=== PATIENT | female | born 1945 | race Caucasian/White ===

== ENCOUNTER 2017-04-02 11:01 | Observation (INO) | payer MEDICARE ==
[~2017-04-02] VITALS: Ht 154.9 cm; Wt 59.0 kg
[~2017-04-02 11:01] MED LIST: CHOL50006 PO; FISH500C PO; MULTCAP OR; [UNRECOGNIZED DRUG - OTHER] PO
[2017-04-02] MEDS ORDERED: IOHEXOL 350 MG/ML 10 ML VIAL (for RAD DIAG) IVCONTRAST ONE (11:02)
[2017-04-02 11:04] VITALS: BP 141/93; PULSE 97; RESP 14; TEMP 98.7; O2SAT 97
[2017-04-02 11:51] LABS: AUTOMATED NEUTROPHIL # 4.1 TH/MM3 (1.8-7.7); BASOPHIL % 0.5 % (0.0-2.0); EOSINOPHIL % 0.6 % (0.0-4.0); HEMATOCRIT 33.8 % (35.0-46.0); HEMOGLOBIN 11.3 GM/DL (11.6-15.3); LYMPHOCYTE # 1.2 TH/MM3 (1.0-4.8); MEAN CELL VOLUME 95.8 FL (80.0-100.0); MEAN CORPUSCULAR HEMOGLOBIN 32.1 PG (27.0-34.0); MEAN CORPUSCULAR HGB CONC 33.5 % (32.0-36.0); MEAN PLATELET VOLUME 8.1 FL (7.0-11.0); MONO % 5.1 % (0.0-8.0); MONOCYTE # 0.3 TH/MM3 (0-0.9); NEUT % 72.8 % (16.0-70.0); PLATELET COUNT 263 TH/MM3 (150-450); RED BLOOD COUNT 3.53 MIL/MM3 (4.00-5.30); RED CELL DISTRIBUTION WIDTH 16.6 % (11.6-17.2); WHITE BLOOD COUNT 5.6 TH/MM3 (4.0-11.0)
[2017-04-02 12:01] LABS: PROTHROMBIN TIME - PATIENT 9.9 SEC (9.8-11.6)
--- NOTE | 2017-04-02 12:14 | PD ---
HPI Chief Complaint: Abdominal Pain Time Seen by Provider: 11:14 Travel History International Travel<30 days: No Contact w/Intl Traveler<30days: No Traveled to known affect area: No History of Present Illness HPI 71-year-old female that presents to the ED for evaluation of left upper abdominal pain. Patient has a history of ovarian cancer with chemotherapy. Last chemotherapy was on . Per patient since she's been feeling that she has constipation she's been taking her medications with minimal relief. Per patient she develop left upper abdominal pain as well as in the left chest and she wasn't sure if he was related to the obstipation or not but she got concerned because the pain continued. No urinary issues. Patient denies any nausea or vomiting. Denies any bowel movement for the past 24 hours. She was not trying enema but she was concerned of using it if she didn't know what she was having. She denies any shortness of breath but does state that with deep breaths she has sharp pain in her left upper quadrant as well as her chest. She denies taking any blood thinners. She does have a cough that she attributes to the chemotherapy which is normal for her. She's been battling with the ovarian cancer for almost 4 years now. She denies any recent surgeries to her abdomen. Allergies to codeine. Pain per patient is 4 out of 10 and gets worse with deep breaths. Worse with movement. PFSH Past Medical History Cancer: Yes (CURRENT PELVIC, ovarian) Cardiovascular Problems: No Chemotherapy: No Diabetes: No Endocrine: No Gastrointestinal Disorders: Yes (ASCITIS) Genitourinary: No Hepatitis: No Hiatal Hernia: No Immune Disorder: No Implanted Vascular Access Dvce: Yes Musculoskeletal: No Neurologic: No Psychiatric: No Reproductive: No Respiratory: No Radiation Therapy: No Thyroid Disease: No ?: Not Past Surgical History Abdominal Surgery: Yes (LAPAROSCOPIC BX) Cardiac Surgery: No Ear Surgery: No Endocrine Surgery: No Eye Surgery: No Genitourinary Surgery: No Gynecologic Surgery: Yes (PARTIAL HYSTERECTOMY) Oral Surgery: No Pacemaker: No Thoracic Surgery: No Other Surgery: Yes Social History Alcohol Use: No Tobacco Use: No Substance Use: Yes (marijuana ) Allergies-Medications (Allergen,Severity, Reaction): Coded Allergies: acetaminophen (Unverified Allergy, Severe, VOMITING, 04/02/17) ondansetron (Verified Allergy, Unknown, 04/02/17) Reported Meds & Prescriptions Reported Meds & Active Scripts Active Reported Vitamin D (Cholecalciferol) 5,000 Unit Tab 5,000 Unit PO DAILY [move right (otc)] 1 Tab PO DAILY Fish Oil 500 Mg Cap 500 Mg PO DAILY Multi For Her (Multiple Vitamins W/ Minerals) Cap 1 Tab OR DAILY Review of Systems Except as stated in HPI: all other systems reviewed are Neg Physical Exam Narrative GENERAL: SKIN: Warm and dry. HEAD: Atraumatic. Normocephalic. EYES: Pupils equal and round. No scleral icterus. No injection or drainage. ENT: No nasal bleeding or discharge. Mucous membranes pink and moist. Tongue is midline. No uvula deviation. NECK: Trachea midline. No JVD. CARDIOVASCULAR: Regular rate and rhythm. No murmurs, S3, S4. RESPIRATORY: No accessory muscle use. Clear to auscultation. Breath sounds equal bilaterally. GASTROINTESTINAL: Abdomen soft, left upper quadrant abdominal pain with deep palpation but also noted on the left rib cage just below the breast with deep breaths, nondistended. Hepatic and splenic margins not palpable. MUSCULOSKELETAL: Extremities without clubbing, cyanosis, or edema. No obvious deformities. Full range of motion of the upper and lower extremities bilaterally. 2+ pulses bilaterally. NEUROLOGICAL: Awake and alert. No obvious cranial nerve deficits. Motor grossly within normal limits. Five out of 5 muscle strength in the arms and legs. Normal speech. PSYCHIATRIC: Appropriate mood and affect; insight and judgment normal. Data Data Last Documented VS Vital Signs Date Time Temp Pulse Resp B/P (MAP) Pulse Ox O2 Delivery O2 Flow Rate FiO2 04/02/17 13:13 85 18 126/78 (94) 97 Room Air 04/02/17 11:04 98.7 Orders Orders Complete Blood Count With Diff (04/02/17 11:15) Comprehensive Metabolic Panel (04/02/17 11:15) Lipase (04/02/17 11:15) Lactic Acid (04/02/17 11:15) Prothrombin Time / Inr (Pt) (04/02/17 11:15) Act Partial Throm Time (Ptt) (04/02/17 11:15) Urinalysis - C+S If Indicated (04/02/17 11:15) Ct Abd/Pel W Iv Contrast(Rout) (04/02/17 11:15) Iv Access Insert/Monitor (04/02/17 11:15) Ct Pulmonary Angiogram (04/02/17 ) Urine Culture (04/02/17 11:39) Iohexol 350 Inj (Omnipaque 350 Inj) (04/02/17 11:02) Admit Order (Ed Use Only) (04/02/17 13:52) Consult Urology (04/02/17 ) Consult [facility] (04/02/17 ) Invasive Rad Dept Consult (04/02/17 ) Labs Laboratory Tests Test 04/02/17 11:30 04/02/17 11:39 White Blood Count 5.6 TH/MM3 Red Blood Count 3.53 MIL/MM3 Hemoglobin 11.3 GM/DL Hematocrit 33.8 % Mean Corpuscular Volume 95.8 FL Mean Corpuscular Hemoglobin 32.1 PG Mean Corpuscular Hemoglobin Concent 33.5 % Red Cell Distribution Width 16.6 % Platelet Count 263 TH/MM3 Mean Platelet Volume 8.1 FL Neutrophils (%) (Auto) 72.8 % Lymphocytes (%) (Auto) 21.0 % Monocytes (%) (Auto) 5.1 % Eosinophils (%) (Auto) 0.6 % Basophils (%) (Auto) 0.5 % Neutrophils # (Auto) 4.1 TH/MM3 Lymphocytes # (Auto) 1.2 TH/MM3 Monocytes # (Auto) 0.3 TH/MM3 Eosinophils # (Auto) 0.0 TH/MM3 Basophils # (Auto) 0.0 TH/MM3 CBC Comment DIFF FINAL Differential Comment Prothrombin Time 9.9 SEC Prothromb Time International Ratio 1.0 RATIO Activated Partial Thromboplast Time 23.4 SEC Blood Urea Nitrogen 22 MG/DL Creatinine 1.14 MG/DL Random Glucose 124 MG/DL Total Protein 7.8 GM/DL Albumin 3.9 GM/DL Calcium Level 9.8 MG/DL Alkaline Phosphatase 73 U/L Aspartate Amino Transf (AST/SGOT) 40 U/L Alanine Aminotransferase (ALT/SGPT) 23 U/L Total Bilirubin 0.4 MG/DL Sodium Level 137 MEQ/L Potassium Level 4.1 MEQ/L Chloride Level 103 MEQ/L Carbon Dioxide Level 23.2 MEQ/L Anion Gap 11 MEQ/L Estimat Glomerular Filtration Rate 47 ML/MIN Lactic Acid Level 1.5 mmol/L Lipase 145 U/L Urine Color YELLOW Urine Turbidity HAZY Urine pH 6.0 Urine Specific [place] 1.025 Urine Protein TRACE mg/dL Urine Glucose (UA) NEG mg/dL Urine Ketones NEG mg/dL Urine Occult Blood NEG Urine Nitrite NEG Urine Bilirubin NEG Urine Urobilinogen LESS THAN 2.0 MG/DL Urine Leukocyte Esterase SMALL Urine RBC 2 /hpf Urine WBC 4 /hpf Urine Squamous Epithelial Cells 10 /hpf Urine Amorphous Sediment RARE Urine Bacteria MOD /hpf Urine Mucus FEW /lpf Microscopic Urinalysis Comment CULTURE INDICATED MDM Medical Decision Making Medical Screen Exam Complete: Yes Emergency Medical Condition: Yes Medical Record Reviewed: Yes Interpretation(s) CBC & BMP Diagram 04/02/17 11:30 Total Protein 7.8, Albumin 3.9, Calcium Level 9.8, Alkaline Phosphatase 73, Aspartate Amino Transf (AST/SGOT) 40 H, Alanine Aminotransferase (ALT/SGPT) 23, Total Bilirubin 0.4 Last Impressions Abdomen/Pelvis CT 04/02/17 1115 Signed Impressions: Service Date/Time: Sunday, April 02, 2017 12:49 - CONCLUSION: 1. Multiple large heterogeneous solid masses in the abdomen indicating metastatic malignancy. There is involvement of the spleen, liver, mesentery, and pelvic retroperitoneum. 2. Severe left hydronephrosis and left hydroureter to the level of left-sided pelvic mass. Sreekanth Blue MD CT Angiography 04/02/17 0000 Signed Impressions: Service Date/Time: Sunday, April 02, 2017 12:49 - CONCLUSION: Moderate severity motion artifact. No evidence of pulmonary embolus. No acute findings in the chest. Sreekanth Blue MD UA WNL Differential Diagnosis Pulmonary embolism versus pneumonia versus pleurisy versus acute abdomen versus diverticulitis versus kidney stone versus kidney infection versus pancreatitis versus constipation Narrative Course 71-year-old female that presents to the ED for evaluation of left upper quadrant abdominal pain and chest pain. Patient was properly examined and was found to have signs and symptoms which appear to be consistent with possible constipation versus kidney stone versus PE. Hard to discern whether the pain originates but it seems to be referred on the border between the abdomen and the chest so etiologies for chest as well as abdomen cannot be rule out. Do recommend CT. More concerning for PE as patient does have a history of cancer. I do recommend imaging and patient agrees with this. Labs were ordered. Labs and imaging showed severe hydronephrosis of the left kidney secondary to mass. Patient does have significant metastatic disease. Case was discussed in my attending Dr. Sloan who was made aware of findings and spoke with Dr. Merrill over the phone for urology who recommends consult to him but he will also likely IR consultation to see if they can do while nephrostomy tubes secondary to tomorrow blocking the ureter. My attending paged Dr. Alejo but he did not answer. Case was discussed with the residents who agreed to admission. Patient was admitted. Patient was medically aware of findings and need for treatment and agrees with plan. Diagnosis Primary Impression: Hydronephrosis due to obstruction of ureter Additional Impressions: Ovarian cancer Qualified Codes: C56.9 - Malignant neoplasm of unspecified ovary Metastatic cancer Admitting Information Admitting Physician Requests: Giuseppe Anderson Apr 02, 2017 12:14
[2017-04-02 12:17] LABS: ALBUMIN 3.9 GM/DL (3.4-5.0); AST (GOT) 40 U/L (15-37); BICARBONATE 23.2 MEQ/L (21.0-32.0); BLOOD UREA NITROGEN 22 MG/DL (7-18); CALCIUM 9.8 MG/DL (8.5-10.1); CHLORIDE 103 MEQ/L (98-107); CREATININE 1.14 MG/DL (0.50-1.00); GLOMERULAR FILTRATION RATE 47 ML/MIN (>89); GLUCOSE,RANDOM 124 MG/DL (74-106); LIPASE 145 U/L (73-393); SODIUM (NA) 137 MEQ/L (136-145)
[2017-04-02 12:20] LABS: ALKALINE PHOSPHATASE 73 U/L (45-117); ALT (GPT) 23 U/L (10-53); TOTAL BILIRUBIN ADULT 0.4 MG/DL (0.2-1.0); TOTAL PROTEIN 7.8 GM/DL (6.4-8.2)
[2017-04-02 12:45] LABS: AMORPHOUS SEDIMENT, URINE RARE; BACTERIA, URINE MOD /hpf; BILIRUBIN, URINE NEG (NEG); BLOOD, URINE NEG (NEG); GLUCOSE,URINE NEG (NEG); KETONE, URINE NEG (NEG); MUCUS URINE FEW /lpf (OCC); NITRITE,URINE NEG (NEG); SQUAMOUS EPITHELIAL CELL URINE 10 /hpf (0-5); URINE COLOR YELLOW (YELLW/STRAW); URINE LEUKOCYTE ESTERASE SMALL (NEG)
[2017-04-02 13:13] VITALS: BP 126/78; PULSE 85; RESP 18; O2SAT 97
--- NOTE | 2017-04-02 13:26 | RADRPT ---
EXAM DATE/TIME: 04/02/2017 12:49 [facility] COMPARISON: No previous studies available for comparison. INDICATIONS : Stabbing left side abdominal pain, constipation. IV CONTRAST: 96 cc Omnipaque 350 (iohexol) IV ; Cumulative dose for multiple exams. ORAL CONTRAST: No oral contrast ingested. RADIATION DOSE: 7.72 CTDIvol (mGy) MEDICAL HISTORY : Carcinoma, ovarian. Metastatic disease. SURGICAL HISTORY : Hysterectomy. ENCOUNTER: Initial ACUITY: 1 day PAIN SCALE: 7/10 LOCATION: Left upper quadrant TECHNIQUE: Volumetric scanning of the abdomen and pelvis was performed. Using automated exposure control and ad justment of the mA and/or kV according to patient size, radiation dose was kept as low as reasonably achievable to obtain optimal diagnostic quality images. DICOM format image data is available electro nically for review and comparison. FINDINGS: LOWER LUNGS: The visualized lower lungs are clear. LIVER: 2.9 x 1.7 cm heterogeneous mass along the dome of the right lobe of the liver on image #6. Mild diffu se fatty infiltration of the liver. SPLEEN: Multiple heterogeneous solid masses in the spleen with the largest measuring 11.0 x 9.5 cm PANCREAS: Within normal limits. KIDNEYS: Severe left hydronephrosis and left hydroureter to the level of the mass in the pelvis. Right kidney within normal limits. ADRENAL GLANDS: Within normal limits. VASCULAR: Diffuse atherosclerotic disease. Aortic diameter within normal limits. BOWEL/MESENTERY: Central anterior mesenteric heterogeneous solid mass measuring 8.7 x 6.2 cm. No evidence of bowel dil atation. No free air or free fluid. Appendix within normal limits. ABDOMINAL WALL: Within normal limits. RETROPERITONEUM: Bilateral large heterogeneous retroperitoneal masses in the pelvis. On the right it measures 8.9 x 6. 1 cm. On the left measuring 9.7 x 4.6 cm. BLADDER: No wall thickening or mass. REPRODUCTIVE: Within normal limits. INGUINAL: There is no lymphadenopathy or hernia. MUSCULOSKELETAL: Prominent degenerative findings lower lumbar spine. CONCLUSION: 1. Multiple large heterogeneous solid masses in the abdomen indicating metastatic malignancy. There i s involvement of the spleen, liver, mesentery, and pelvic retroperitoneum. 2. Severe left hydronephrosis and left hydroureter to the level of left-sided pelvic mass. Sreekanth Blue MD on April 02, 2017 at 13:16 Board Certified Radiologist. This report was verified electronically.
--- NOTE | 2017-04-02 13:34 | RADRPT ---
EXAM DATE/TIME: 04/02/2017 12:49 [facility] COMPARISON: No previous studies available for comparison. INDICATIONS : Left lower chest pain, inceases with inspiration. IV CONTRAST: 96 cc Omnipaque 350 (iohexol) IV ; Cumulative dose for multiple exams. RADIATION DOSE: 12.14 CTDIvol (mGy) MEDICAL HISTORY : Metastatic disease. Ovarian cancer. SURGICAL HISTORY : Hysterectomy. ENCOUNTER: Initial ACUITY: 1 day PAIN SCALE: 5/10 LOCATION: Left lower chest TECHNIQUE: Volumetric scanning of the chest was performed using a pulmonary embolism protocol MIP images were re constructed. Using automated exposure control and adjustment of the mA and/or kV according to patien t size, radiation dose was kept as low as reasonably achievable to obtain optimal diagnostic quality images. DICOM format image data is available electronically for review and comparison. Follow-up recommendations for detected pulmonary nodules are based at a minimum on nodule size and pa tient risk factors according to Fleischner Society Guidelines. FINDINGS: PULMONARY ARTERIES: No filling defects are seen in the pulmonary arteries through the segmental level. LUNGS: There is no consolidation or pneumothorax . No concerning pulmonary nodule is visualized. PLEURAE: There is no pleural thickening or pleural effusion. MEDIASTINUM: There is good visualization of the great vessels of the middle mediastinum. No evidence of mediastin al or hilar adenopathy/mass. MUSCULOSKELETAL: Within normal limits for patient age. MISCELLANEOUS: Abdomen described on abdomen CT report. CONCLUSION: Moderate severity motion artifact. No evidence of pulmonary embolus. No acute findings in the chest. Sreekanth Blue MD on April 02, 2017 at 13:29 Board Certified Radiologist. This report was verified electronically.
--- NOTE | 2017-04-02 13:56 | HHI.HP ---
HPI Service Family Medicine Primary Care Physician Jeane Weaver D.O. Admission Diagnosis severe left hydronephrosis secondary to tumor Diagnoses: International Travel<30 Days: No Contact w/Intl Traveler<30days: No Known Affected Area: No History of Present Illness 71 y/o F, undergoing chemo treatments for the last 6 years for ovarian cancer with metastisis, came in with L-sided side/flank pain starting at 4: 00AM. The pain was dull and aching and Tuesday it became a sharp pain. She felt the sharp pain when she breaths heavy or coughs. She has not taken anything for the pain. She thought it may be constipation but a stool softener did not help. She also feels like her "stomach is a rock". She feels that she is bloated and gassy. The pain is limited to the left flank and DOES NOT extend across the abdomen or elsewhere. She did have a bowel movement this morning but it was very small and hard and a small amount. She did not have a fully formed normal bowel movement. Her bowels are usually very regular and she goes 1x/day. She has been urinating normally and at her baseline; she urinated 3x last night overnight. She was slightly nauseas earlier but is not N/V on time of exam. She denies any fevers/chills. She denies CP/SOB/dizziness. Denies hematuria or hematochezia. Her chemo regimen is 1x/week for 3 weeks in a row then 1 week off. She does chemo through her port on the right side. Her last appt with was 4 months ago. This is palliative chemo at this point and she knows the cancer is "all over". Review of Systems Constitutional: DENIES: Weight gain, Weight loss Endocrine: DENIES: Polyuria, Polyphagia Eyes: DENIES: Eye pain, Vision loss Ears, nose, mouth, throat: DENIES: Ear Pain Respiratory: DENIES: Snoring, Wheezing Cardiovascular: DENIES: Lower Extremity Edema, Orthopnea Gastrointestinal: DENIES: Black stools, Bloody stools Genitourinary: DENIES: Urinary frequency, Urgency Musculoskeletal: DENIES: Muscle aches, Stiffness Integumentary: DENIES: Rash Neurologic: DENIES: Headache, Seizures Psychiatric: DENIES: Confusion, Depression Other negative x 10 than otherwise mentioned in HPI Past Family Social History Past Medical History Ovarian cancer ; details as per HPI HTN Past Surgical History Partial hysterectomy at 30 y/o Debulking surgery 2011 Allergies: Coded Allergies: acetaminophen (Unverified Allergy, Severe, VOMITING, 04/02/17) ondansetron (Verified Allergy, Unknown, 04/02/17) Family History Sister: breast ca Mother: cervical ca Social History Live in a home with 98 y/o Dad and 60 y/o cousin, takes care of her dad Smoke marijuana x 6 months, no tobacco smoking, never any drugs, no drinking Physical Exam Vital Signs Vital Signs Date Time Temp Pulse Resp B/P (MAP) Pulse Ox O2 Delivery O2 Flow Rate FiO2 04/02/17 13:13 85 18 126/78 (94) 97 Room Air 04/02/17 11:04 98.7 97 14 141/93 (109) 97 Physical Exam GENERAL: This is a well-nourished, well-developed patient, in no apparent distress. SKIN: No rashes, ecchymoses or lesions. Cool and dry. HEAD: Atraumatic. Normocephalic. No temporal or scalp tenderness. EYES: Pupils equal round and reactive. Extraocular motions intact. No scleral icterus. No injection or drainage. ENT: Nose without bleeding, purulent drainage or septal hematoma. Throat without erythema, tonsillar hypertrophy or exudate. Uvula midline. Airway patent. NECK: Trachea midline. No JVD or lymphadenopathy. Supple, nontender, no meningeal signs. CARDIOVASCULAR: Regular rate and rhythm without murmurs, gallops, or rubs. RESPIRATORY: Clear to auscultation. Breath sounds equal bilaterally. No wheezes , rales, or rhonchi. GASTROINTESTINAL: Abdomen soft, non-tender, nondistended. No hepato-splenomegaly , or palpable masses. No guarding. + bowel sounds MUSCULOSKELETAL: No pain on palpation of left side. Extremities without clubbing , cyanosis, or edema. No joint tenderness, effusion, or edema noted. No calf tenderness. Negative Homans sign bilaterally. NEUROLOGICAL: Awake and alert. Cranial nerves II through XII intact. Motor and sensory grossly within normal limits. Five out of 5 muscle strength in all muscle groups. Normal speech. Laboratory Laboratory Tests Test 04/02/17 11:30 04/02/17 11:39 White Blood Count 5.6 Red Blood Count 3.53 Hemoglobin 11.3 Hematocrit 33.8 Mean Corpuscular Volume 95.8 Mean Corpuscular Hemoglobin 32.1 Mean Corpuscular Hemoglobin Concent 33.5 Red Cell Distribution Width 16.6 Platelet Count 263 Mean Platelet Volume 8.1 Neutrophils (%) (Auto) 72.8 Lymphocytes (%) (Auto) 21.0 Monocytes (%) (Auto) 5.1 Eosinophils (%) (Auto) 0.6 Basophils (%) (Auto) 0.5 Neutrophils # (Auto) 4.1 Lymphocytes # (Auto) 1.2 Monocytes # (Auto) 0.3 Eosinophils # (Auto) 0.0 Basophils # (Auto) 0.0 CBC Comment DIFF FINAL Differential Comment Prothrombin Time 9.9 Prothromb Time International Ratio 1.0 Activated Partial Thromboplast Time 23.4 Blood Urea Nitrogen 22 Creatinine 1.14 Random Glucose 124 Total Protein 7.8 Albumin 3.9 Calcium Level 9.8 Alkaline Phosphatase 73 Aspartate Amino Transf (AST/SGOT) 40 Alanine Aminotransferase (ALT/SGPT) 23 Total Bilirubin 0.4 Sodium Level 137 Potassium Level 4.1 Chloride Level 103 Carbon Dioxide Level 23.2 Anion Gap 11 Estimat Glomerular Filtration Rate 47 Lactic Acid Level 1.5 Lipase 145 Urine Color YELLOW Urine Turbidity HAZY Urine pH 6.0 Urine Specific [place] 1.025 Urine Protein TRACE Urine Glucose (UA) NEG Urine Ketones NEG Urine Occult Blood NEG Urine Nitrite NEG Urine Bilirubin NEG Urine Urobilinogen LESS THAN 2.0 Urine Leukocyte Esterase SMALL Urine RBC 2 Urine WBC 4 Urine Squamous Epithelial Cells 10 Urine Amorphous Sediment RARE Urine Bacteria MOD Urine Mucus FEW Microscopic Urinalysis Comment CULTURE INDICATED Date/Time Source Procedure Growth Status 04/02/17 11:39 Urine Random Urine Urine Culture Pending Received Result Diagram: 04/02/17 1130 04/02/17 1130 Caprini VTE Risk Assessment Caprini VTE Risk Assessment: No/Low Risk (score <= 1) Caprini Risk Assessment Model Point Value = 1 Point Value = 2 Point Value = 3 Point Value = 5 Age 41-60 Minor surgery BMI > 25 kg/m2 Swollen legs Varicose veins or History of unexplained or recurrent spontaneous Oral contraceptives or hormone replacement Sepsis (< 1 month) Serious lung disease, including pneumonia (< 1 month) Abnormal pulmonary function Acute myocardial infarction Congestive heart failure (< 1 month) History of inflammatory bowel disease Medical patient at bed rest Age 61-74 Arthroscopic surgery Major open surgery (> 45 min) Laparoscopic surgery (> 45 min) Malignancy Confined to bed (> 72 hours) Immobilizing plaster cast Central venous access Age >= 75 History of VTE Family history of VTE Factor V Leiden Prothrombin [id number] Lupus anticoagulant Anticardiolipin antibodies Elevated serum homocysteine Heparin-induced thrombocytopenia Other congenital or acquired thrombophilia Stroke (< 1 month) Elective arthroplasty Hip, pelvis, or leg fracture Acute spinal cord injury (< 1 month) Prophylaxis Regimen Total Risk Factor Score Risk Level Prophylaxis Regimen 0-1 Low Early ambulation 2 Moderate Order ONE of the following: *Sequential Compression Device (SCD) *Heparin 5000 units SQ BID 3-4 Higher Order ONE of the following medications: *Heparin 5000 units SQ TID *Enoxaparin/Lovenox 40 mg SQ daily (WT < 150 kg, CrCl > 30 mL/min) *Enoxaparin/Lovenox 30 mg SQ daily (WT < 150 kg, CrCl > 10-29 mL/min) *Enoxaparin/Lovenox 30 mg SQ BID (WT < 150 kg, CrCl > 30 mL/min) AND/OR *Sequential Compression Device (SCD) 5 or more Highest Order ONE of the following medications: *Heparin 5000 units SQ TID (Preferred with Epidurals) *Enoxaparin/Lovenox 40 mg SQ daily (WT < 150 kg, CrCl > 30 mL/min) *Enoxaparin/Lovenox 30 mg SQ daily (WT < 150 kg, CrCl > 10-29 mL/min) *Enoxaparin/Lovenox 30 mg SQ BID (WT < 150 kg, CrCl > 30 mL/min) AND *Sequential Compression Device (SCD) Assessment and Plan Assessment and Plan 71 y/o F, hx of metastatic ovarian cancer undergoing palliative chemotherapy, presents with L-side pain x 2 days and is found on CT to L hydronephrosis from pelvic mass effect. Admitted for urology consultation and IR drainage. Code Status Full CODE Discussed Condition With Problem List: (1) Ovarian cancer ICD Codes: C56.9 - Malignant neoplasm of unspecified ovary Status: Acute Plan: Consult pt's Mortgage Loan Officer Originator/Onc - f/u recs (2) Metastatic cancer ICD Codes: C79.9 - Secondary malignant neoplasm of unspecified site Status: Acute Plan: See above Cont pain management Cont Nausea management (3) Hydronephrosis due to obstruction of ureter ICD Codes: N13.2 - Hydronephrosis with renal and ureteral calculous obstruction Status: Acute Plan: Consult urology Consult IR for possible drainage NPO f/u recs UA: small leuk est, mod bacteria f/u Ucx (4) Hypertension ICD Codes: I10 - Essential (primary) hypertension Status: Chronic Plan: Continue home lisinopril f/u BPs (5) fen/ppx Status: Chronic Plan: Fluids: NPO Electrolytes: WNL, f/u BMP tomorrow Nutrition: NPO GI ppx: not indicated DVT ppx: hold for now, pending IR procedure Physician Certification 2 Midnight Certification Type: Admission for Inpatient Services Order for Inpatient Services The services are ordered in accordance with Medicare regulations or non- Medicare payer requirements, as applicable. In the case of services not specified as inpatient-only, they are appropriately provided as inpatient services in accordance with the 2-midnight benchmark. Estimated LOS (days): 2 days is the estimated time the patient will need to remain in the hospital, assuming treatment plan goals are met and no additional complications. Post-Hospital Plan: Home Problem Qualifiers (1) Ovarian cancer: Qualified Codes: C56.9 - Malignant neoplasm of unspecified ovary Angelika Corral MD R2 Apr 02, 2017 13:56
[2017-04-02] MEDS ORDERED: LISI40TA PO (14:19)
[2017-04-02] MEDS ORDERED: MAGNESIUM HYDROXIDE SUSP 30 ML CUP PO PRN (14:30)
[2017-04-02] MEDS ORDERED: TEMAZEPAM 15 MG CAP PO PRN (14:30)
[2017-04-02] MEDS ORDERED: SENNOSIDES 8.6 MG TAB PO PRN (14:30)
[2017-04-02] MEDS ORDERED: SODIUM CHLORIDE 0.9% FLUSH 10 ML FLUSH IV FLUSH PRN (14:30)
[2017-04-02] MEDS ORDERED: BISACODYL 10 MG SUPP RECTAL PRN (14:30)
[2017-04-02] MEDS ORDERED: LACTULOSE SYRUP 20 GM/30 ML CUP PO PRN (14:30)
[2017-04-02] MEDS ORDERED: NALOXONE HCL 0.4 MG/ML AMP IV PUSH PRN ×2 (14:30→14:45)
[2017-04-02] MEDS ORDERED: ENALAPRILAT 1.25 MG/ML VIAL IV PUSH PRN (14:45)
[2017-04-02] MEDS ORDERED: PROMETHAZINE HCL 25 MG TAB PO PRN (14:45)
[2017-04-02] MEDS ORDERED: IBUPROFEN 400 MG TAB PO PRN (14:45)
[2017-04-02] MEDS ORDERED: MORPHINE SULFATE 2 MG/ML INJ IV PUSH PRN (14:45)
[2017-04-02] MEDS ORDERED: fentaNYL CITRATE 250 MCG/5 ML AMP ONE (14:51)
[2017-04-02] MEDS ORDERED: MIDAZOLAM HCL 2 MG/2 ML VIAL ONE ×2 (14:51→15:04)
[2017-04-02] MEDS ORDERED: PILL SPLITTER OTHER PRN (15:00)
[2017-04-02] MEDS ORDERED: LEVOFLOXACIN 500 MG PREMIX INJ 100 ML IV ONE (15:02)
[2017-04-02] MEDS ORDERED: IOHEXOL 350 MG/ML 50 ML BTL (for RAD DIAG) OTHER ONE (15:36)
--- NOTE | 2017-04-02 15:44 | PD.RAD ---
Post Procedure Progress Note Pre Procedure Diagnosis: (1) Ovarian cancer (2) Metastatic cancer (3) Hydronephrosis due to obstruction of ureter Post Procedure Diagnosis: (1) Ovarian cancer (2) Metastatic cancer (3) Hydronephrosis due to obstruction of ureter Procedure Date: Apr 02, 2017 Supervising Radiologist: Myles Bobby Proceduralist/Assist: Rubia Coombs, RT(R)(), Mel Calloway RT(R) Anesthesia: Local, Analgesia, Conscious Sedation Plan of Activity Patient to Unit: Other (ED) Patient Condition: Good See PACS Report for procedural detail/treatment Drainage Procedure Procedure 1 Imaging Guidance: Fluoroscopy, Ultrasound Side: Left Procedure Type: Nephrostomy, Ureteral Stent Procedure: Placement Fluid Description: Yellow Findings: Marked hydronephrosis and hydroureter on the left. PCNU placed. Myles Bobby MD Apr 02, 2017 15:43
[2017-04-02 15:59] VITALS: BP 134/83; PULSE 90; RESP 20; O2SAT 100
--- NOTE | 2017-04-02 16:45 | RADRPT ---
EXAM DATE/TIME: 04/02/2017 16:00 [place] COMPARISON: No previous studies available for comparison. INDICATIONS : Patient with a history of left hydronephrosis from tumor. MEDICAL HISTORY : Ovarian cancer [place] SURGICAL HISTORY : Laparascopic biopsy Hysterectomy ENCOUNTER: Initial ACUITY: 1 day PAIN SCORE: 8/10 LOCATION: Left flank FLUORO TIME: 7.2 minutes IMAGE SERIES: 4 SEDATION TIME: 30 minutes CONTRAST: 25 cc Omnipaque (iohexol) 350 MEDICATION(S): 1.) 5.5 mg midazolam (Versed) IV 2.) 325 mcg fentanyl (Sublimaze) IV 3.) 500 mg levofloxacin (Levaquin) IV Intra-procedural antibiotics were given as prescribed above. DEVICE(S): 1.) 8 Maori [id number] nephroureteral stent PROCEDURE : 1. Ultrasound-guided puncture of the kidney. 2. Antegrade percutaneous pyelogram. 3. Percutaneous nephroureteral stent placement. 4. Conscious sedation with continuous EKG and oximetry monitoring. The risks, benefits and alternatives to the procedure were explained and verbal and written consent w as obtained. The site was prepped in sterile fashion. Full sterile technique was used, including ca p, mask, sterile gloves and gown and a large sterile sheet. Hand hygiene and 2% chlorhexidine and/or betadine/alcohol prep was utilized per protocol for cutaneous antisepsis. Sterile gel and sterile p robe cover were utilized for ultrasound guidance. The skin and subcutaneous tissues were infiltrated with local anesthetic solution. With ultrasound and fluoroscopic guidance the selected kidney was punctured and a percutaneous antegr charles pyelogram was performed demonstrating a dilated collecting system. The ureter was obstructed dis tally and quite dilated/tortuous. Serial dilatation was performed and the prescribed nephroureteral s tent was placed with the proximal portion within the renal pelvis and the distal extent in the urinar y bladder. Injection of positive contrast demonstrates good position of the catheter. Conscious sedation was performed with the prescribed dosages and duration as above in the presence of an independent trained radiology nurse to assist in the monitoring of the patient. EKG and oximetry remained stable throughout the procedure. The patient tolerated the procedure well and there were n o complications. The patient was sent to post anesthesia recovery in stable condition. CONCLUSION: Uncomplicated nephroureteral stent placement as above. Myles Bobby MD on April 02, 2017 at 16:42 Board Certified Radiologist. This report was verified electronically.
[2017-04-02] MEDS ORDERED: MORPHINE SULFATE 2 MG/ML INJ IV PUSH ONE (17:15)
[2017-04-02] MEDS: MORPHINE SULFATE 4 MG/ML INJ IV PUSH PRN ×2 (17:19→21:10)
[2017-04-02 17:45] VITALS: BP 117/70; PULSE 80; RESP 18; TEMP 97.4; O2SAT 99
--- NOTE | 2017-04-02 19:36 | HHI.FPPN ---
Subjective Remarks Attending medical note: Patient seen and examined in the presence of the nursing staff. Family at bedside. Very pleasant 71-year-old woman of [place] ancestry who was first diagnosed with serous ovarian carcinoma in 2011 currently on topotecan 3 week cycles and off one week admitted to the hospital today with the onset early on the morning of March 24, 2017 of severe left flank pain. Patient has a history of stage IIIc serous ovarian carcinoma followed by Dr. Noni Mejia. Evaluation in the emergency room with a CT scan was notable for significant left hydronephrosis secondary to a mass at the level of the left kidney and ureter. Patient is status post interventional radiology percutaneous drainage of the hydronephrosis. Resting reasonably comfortably although is complaining of lower central pelvic pain. She states this is reminiscent of ovarian tumor pain. He is urinating. Has had some constipation. Refer to resident history and physical for complete discussion of past medical history, family history, social history review of systems. Objective Vitals Vital Signs Date Time Temp Pulse Resp B/P (MAP) Pulse Ox O2 Delivery O2 Flow Rate FiO2 04/02/17 17:45 97.4 80 18 117/70 (86) 99 04/02/17 17:28 04/02/17 15:59 90 20 134/83 (100) 100 Room Air 04/02/17 13:13 85 18 126/78 (94) 97 Room Air 04/02/17 11:04 98.7 97 14 141/93 (109) 97 I/O 04/01/17 04/01/17 04/01/17 04/02/17 04/02/17 04/02/17 07:00 15:00 23:00 07:00 15:00 23:00 Intake Total 100 ml Balance 100 ml Intake IV Total 100 ml Result Diagram: 04/02/17 1130 04/02/17 1130 Objective Remarks Vital signs noted. Gen. appearance: Petite woman delightful in conversation, family at bedside. HEENT: Nonlocalizing. Lungs: Clear to auscultation, slightly resonant to percussion. Cardiac: Increased heart rate, no S3, rhythm is regular, no definite murmurs. Abdomen: Limited exam, patient preferred to sit up, the current percutaneous drainage catheter is not secured in. Abdomen is soft, reports some suprapubic tenderness, difficult to palpate if there is any masses evident. Percutaneous nephrostomy tube exiting left posterior Extremities: No edema, intact pedal pulses, calves are supple. Labs reviewed. A/P Assessment and Plan Clinical assessment: 71-year-old woman of [place] ancestry with a history of serous ovarian carcinoma stage IIIc dating to 2011 admitted with symptomatic left hydronephrosis. Interventional radiology has performed a percutaneous nephrostomy and she is relatively comfortable. Dr. Mejia will be consulted. History of hypertension. Patient seen and examined. Case will be reviewed and discussed with the resident team. Physician will discuss plan of care and proceed as documented in the resident note. Problem List: (1) Ovarian cancer ICD Codes: C56.9 - Malignant neoplasm of unspecified ovary Status: Acute Plan: Consult pt's [employer]ycling [employer] Supervisor/Onc - f/u recs (2) Metastatic cancer ICD Codes: C79.9 - Secondary malignant neoplasm of unspecified site Status: Acute Plan: See above Cont pain management Cont Nausea management (3) Hydronephrosis due to obstruction of ureter ICD Codes: N13.2 - Hydronephrosis with renal and ureteral calculous obstruction Status: Acute Plan: Consult urology Consult IR for possible drainage NPO f/u recs UA: small leuk est, mod bacteria f/u Ucx (4) Hypertension ICD Codes: I10 - Essential (primary) hypertension Status: Chronic Plan: Continue home lisinopril f/u BPs (5) fen/ppx Status: Chronic Plan: Fluids: NPO Electrolytes: WNL, f/u BMP tomorrow Nutrition: NPO GI ppx: not indicated DVT ppx: hold for now, pending IR procedure Problem Qualifiers (1) Ovarian cancer: Qualified Codes: C56.9 - Malignant neoplasm of unspecified ovary Mendoza Raza MD Apr 02, 2017 19:36
[2017-04-02] MEDS: DOCUSATE SODIUM 50 MG/SENNA 8.6 MG TAB PO SCH (21:10)
[2017-04-02] MEDS: SODIUM CHLORIDE 0.9% FLUSH 10 ML FLUSH IV FLUSH SCH (21:10)
[2017-04-03] MEDS ORDERED: PROMETHAZINE INJ 25 MG/ML VIAL IM PRN (00:15)
[2017-04-03 00:21] VITALS: BP 138/84; PULSE 92; RESP 17; TEMP 98; O2SAT 100
[2017-04-03 04:37] VITALS: BP 159/87; PULSE 93; RESP 17; TEMP 98.2; O2SAT 100
[2017-04-03 07:48] VITALS: BP 149/92; PULSE 95; RESP 18; TEMP 99; O2SAT 100
[2017-04-03 07:52] LABS: AUTOMATED NEUTROPHIL # 4.8 TH/MM3 (1.8-7.7); BASOPHIL # 0.1 TH/MM3 (0-0.2); BASOPHIL % 1.1 % (0.0-2.0); EOSINOPHIL % 0.6 % (0.0-4.0); HEMATOCRIT 33.1 % (35.0-46.0); LYMPH % 18.1 % (9.0-44.0); LYMPHOCYTE # 1.2 TH/MM3 (1.0-4.8); MEAN CELL VOLUME 96.4 FL (80.0-100.0); MEAN CORPUSCULAR HGB CONC 33.2 % (32.0-36.0); MEAN PLATELET VOLUME 8.6 FL (7.0-11.0); MONO % 5.2 % (0.0-8.0); MONOCYTE # 0.3 TH/MM3 (0-0.9); PLATELET COUNT 234 TH/MM3 (150-450); RED BLOOD COUNT 3.43 MIL/MM3 (4.00-5.30); RED CELL DISTRIBUTION WIDTH 16.8 % (11.6-17.2); WHITE BLOOD COUNT 6.4 TH/MM3 (4.0-11.0)
[2017-04-03 08:12] LABS: ALBUMIN 3.7 GM/DL (3.4-5.0); ALT (GPT) 21 U/L (10-53); AST (GOT) 40 U/L (15-37); BICARBONATE 23.3 MEQ/L (21.0-32.0); BLOOD UREA NITROGEN 23 MG/DL (7-18); CALCIUM 9.2 MG/DL (8.5-10.1); CHLORIDE 104 MEQ/L (98-107); CREATININE 1.15 MG/DL (0.50-1.00); GLOMERULAR FILTRATION RATE 47 ML/MIN (>89); GLUCOSE,RANDOM 100 MG/DL (74-106); SODIUM (NA) 136 MEQ/L (136-145)
[2017-04-03 08:14] LABS: ALKALINE PHOSPHATASE 70 U/L (45-117); TOTAL BILIRUBIN ADULT 0.5 MG/DL (0.2-1.0); TOTAL PROTEIN 7.7 GM/DL (6.4-8.2)
[2017-04-03] MEDS: SODIUM CHLORIDE 0.9% FLUSH 10 ML FLUSH IV FLUSH SCH (10:30)
[2017-04-03] MEDS: DOCUSATE SODIUM 50 MG/SENNA 8.6 MG TAB PO SCH (10:30)
--- NOTE | 2017-04-03 11:19 | HHI.FPPN ---
Subjective Remarks Pt seen and examined this morning. Pain is well controlled. Pts nurse reports that she had endorsed suprapubic pressure and discomfort. She currently denies any abdominal pain, chest pain, shortness of breath. She endorsed nausea and vomiting overnight, this has resolved. Nephrostomy tube is in place, patent, continues to drain light pink urine. She expresses the desire to go home. She has no additional acute concerns. Objective Vitals Vital Signs Date Time Temp Pulse Resp B/P (MAP) Pulse Ox O2 Delivery O2 Flow Rate FiO2 04/03/17 07:48 99.0 95 18 149/92 (111) 100 04/03/17 04:37 98.2 93 17 159/87 (111) 100 04/03/17 00:21 98.0 92 17 138/84 (102) 100 04/02/17 17:45 97.4 80 18 117/70 (86) 99 04/02/17 17:28 04/02/17 15:59 90 20 134/83 (100) 100 Room Air 04/02/17 13:13 85 18 126/78 (94) 97 Room Air I/O 04/02/17 04/02/17 04/02/17 04/03/17 04/03/17 04/03/17 07:00 15:00 23:00 07:00 15:00 23:00 Intake Total 100 ml Output Total 650 ml Balance 100 ml -650 ml Intake IV Total 100 ml Output Drainage Total 650 ml Result Diagram: 04/03/17 0720 04/03/17 0720 Objective Remarks GENERAL: This is a well-nourished, well-developed patient, in no apparent distress. SKIN: No rashes, ecchymoses or lesions. Cool and dry. HEAD: Atraumatic. Normocephalic. EYES: No scleral icterus. No injection or drainage. ENT: Nose without bleeding, purulent drainage or septal hematoma. Airway patent. CARDIOVASCULAR: Regular rate and rhythm without murmurs, gallops, or rubs. RESPIRATORY: Clear to auscultation. Breath sounds equal bilaterally. No wheezes , rales, or rhonchi. GASTROINTESTINAL: Abdomen soft, non-tender, nondistended. No guarding. MUSCULOSKELETAL: Extremities without clubbing, cyanosis, or edema. No joint tenderness, effusion, or edema noted. No calf tenderness. Negative Homans sign bilaterally. BACK: Nephrostomy tube in place, secured with tape over left lower back. Draining light pink urine. NEUROLOGICAL: Awake and alert. Motor and sensory grossly within normal limits. Normal speech. A/P Assessment and Plan Clinical assessment: 71-year-old woman of [place] ancestry with a history of serous ovarian carcinoma stage IIIc dating to 2011 admitted with symptomatic left hydronephrosis. Interventional radiology has performed a percutaneous nephrostomy and she is relatively comfortable. Dr. Mejia will be consulted. History of hypertension. Patient seen and examined. Case will be reviewed and discussed with the resident team. Physician will discuss plan of care and proceed as documented in the resident note. Discharge Planning Anticipate discharge later today. Problem List: (1) Hydronephrosis due to obstruction of ureter ICD Codes: N13.2 - Hydronephrosis with renal and ureteral calculous obstruction Status: Acute Plan: Consult urology , appreciate recommendations and Consult IR for possible drainage NPO f/u recs UA: small leuk est, mod bacteria f/u Ucx (2) Ovarian cancer ICD Codes: C56.9 - Malignant neoplasm of unspecified ovary Status: Acute Plan: Pt to follow up with Dr. Mejia after discharge. (3) Metastatic cancer ICD Codes: C79.9 - Secondary malignant neoplasm of unspecified site Status: Acute Plan: See above Cont pain management Cont Nausea management (4) Hypertension ICD Codes: I10 - Essential (primary) hypertension Status: Chronic Plan: Continue home medication f/u BPs (5) fen/ppx Status: Chronic Plan: Fluids: Pt tolerating PO Electrolytes: WNL, f/u BMP tomorrow Nutrition: Regular diet GI ppx: not indicated DVT ppx: CHRIS, SCDs, will hold chemoprophylaxis as pt just had procedure with IR Problem Qualifiers (1) Ovarian cancer: Qualified Codes: C56.9 - Malignant neoplasm of unspecified ovary (2) Hypertension: Qualified Codes: I10 - Essential (primary) hypertension Romana David MD R3 Apr 03, 2017 11:19
--- NOTE | 2017-04-03 11:39 | HHI.DCPOC ---
Discharge Care Plan Diagnosis: (1) Ovarian cancer (2) Metastatic cancer (3) Hydronephrosis due to obstruction of ureter (4) Hypertension Goals to Promote Your Health * To prevent worsening of your condition and complications * To maintain your health at the optimal level Directions to Meet Your Goals Take your medications as prescribed Follow your dietary instruction Follow activity as directed Keep your appointments as scheduled Take your immunizations and boosters as scheduled If your symptoms worsen call your PCP, if no PCP go to Urgent Care Center or Emergency Room Smoking is Dangerous to Your Health. Avoid second hand smoke Call the 24-hour hour crisis hotline for domestic abuse at Romana David MD R3 Apr 03, 2017 11:39
[2017-04-03 12:05] VITALS: BP 149/93; PULSE 102; RESP 18; TEMP 97.6; O2SAT 98
--- NOTE | 2017-04-03 12:32 | MB ---
cc: DENISSE KRISHNAMURTHY DATE OF CONSULTATION: 04/03/2017 REASON FOR CONSULTATION: HISTORY OF PRESENT ILLNESS: Ms. Lemos is a very pleasant 71-year-old female with history of stage II-C ovarian cancer. She presented to the emergency room with an onset of left-sided flank pain. The pain began this past and persisted. She also said she had some nausea at times but denied any vomiting. She denies any fever or chills and she presently denies any voiding complaints. A CT scan in the emergency room was performed demonstrating severe left-sided hydronephrosis with atrophy of the left kidney as well as tumor noted in the pelvis which is most likely the cause of her obstruction on the left. Her right kidney is normal in size and does not have any hydronephrosis. She is on chemotherapy at present and her last treatment was this past week. PAST MEDICAL HISTORY: Her medical problems include stage II-C ovarian cancer. Hypertension. PAST SURGICAL HISTORY: 1. Partial hysterectomy. 2. Debulking surgery in 2011. ALLERGIES: TYLENOL ZOFRAN FAMILY HISTORY: Notable for breast cancer and mother with cervical cancer. SOCIAL HISTORY: She presently lives at home alone. Her from bladder cancer in the past. She denies drinking. She does smoke marijuana on occasion. REVIEW OF SYSTEMS: Notes flank pain, nausea. Denies fever or chills. Denies chest pain, shortness of breath or dizziness. Denies any gross hematuria or bloody stools. Denies constipation at present. Denies weight gain or weight loss. Denies eye pain or vision loss. Denies ear pain. Denies snoring or wheezing. Denies any lower extremity swelling. Denies urgency or urinary frequency The remaining review of systems were reviewed and were negative. PHYSICAL EXAMINATION: VITAL SIGNS: Temperature is 99.0, heart rate 95, respiratory 18, blood pressure 149/92. She is well-developed, well-nourished 71 year-old female in no acute distress. HEENT: Normocephalic, atraumatic. Pupils equal, round, regular, reactive to light. Extraocular movements intact. NECK: Neck is supple. HEART: : Rate regular rate and rhythm. LUNGS: Lungs are clear. ABDOMEN: Soft, nontender, nondistended, left nephrostomy tube is draining blood tinged urine, normal female external genitalia is noted. EXTREMITIES: Show no cyanosis, edema. NEUROLOGIC: Cranial nerves II-XII are intact. PSYCHIATRIC: Generalized mood. LABORATORY DATA: White count 6.4, hemoglobin 11.0, hematocrit 33.1, platelet count 234. Sodium 136, potassium 4.4, chloride 104, CO2 23.3, BUN of 22, creatinine 1.1. Glucose of 100. PT is 9.9, INR is 1.0. PTT is 23.4. Urinalysis shows 2 red cells and 4 white cells. IMAGING STUDIES: CT scan of the abdomen and pelvis demonstrates multiple large heterogeneous solid masses in the abdomen indicating metastatic malignancy, involvement of spleen, liver, mesentery and pelvic retroperitoneum with severe left-sided nephrosis and left hydroureter to the level of left-sided pelvic mass. ASSESSMENT: The patient is a 71 year-old female with a history of stage II-C ovarian cancer with bulky metastatic disease causing left-sided hydronephrosis with cortical atrophy of the left side. The patient is status post left percutaneous nephrostomy tube which was recommended yesterday after speaking with Dr. Hess. Will need internalization within the next week or two and this can be done on an outpatient basis with interventional radiology. Thank you for the consultation and allowing me to participate in the care of this patient. Denisse GARY /11:02 AM /11:58 AM
[2017-04-03] MEDS ORDERED: LISINOPRIL 20 MG TAB PO SCH (13:00)
== END 2017-04-03 14:52 | disposition home or self-care (01) ==
LOC: NEPE 11:01 → NEDA 13:55 → UNDOADMIN 13:55 → NEDA 14:32 → INTOOBSV 14:32 → NEPHCDU 18:26 → NEDA 18:26 → UNDODISIN 04-03 14:52
PROVIDERS: ADMIT Family Medicine; ATTEND Family Medicine
DX: N13.2 Hydronephrosis with renal and ureteral calculous obstruction (principal); C56.9 Malignant neoplasm of unspecified ovary; C79.9 Secondary malignant neoplasm of unspecified site; R07.9 Chest pain, unspecified; I10 Essential (primary) hypertension; F12.90 Cannabis use, unspecified, uncomplicated; K59.00 Constipation, unspecified; Z85.51 Personal history of malignant neoplasm of bladder; Z90.710 Acquired absence of both cervix and uterus; Z88.5 Allergy status to narcotic agent
CPT/HCPCS: 50433; 71275; 74177; 80053; 81001; 83605; 83690; 85025; 85610; 85730; 87086; 96374; 96375; 96376; 97162; 97165; 99152; 99153; 99285; C1769; C1877; C1887; G0378; G8987; G8988; G8989; J1956; J2250; J2270; J2550; J3010; Q9967

== ENCOUNTER 2017-04-08 19:29 | Emergency (ER) | payer MEDICARE ==
[~2017-04-08 19:29] MED LIST changes: +LISI40TA PO
[2017-04-08 19:30] VITALS: BP 152/88; PULSE 104; RESP 16; TEMP 98.1; O2SAT 98
[2017-04-08] MEDS ORDERED: SODIUM CHLORIDE 0.9% FLUSH 10 ML FLUSH IV FLUSH PRN (20:45)
[2017-04-08] MEDS ORDERED: MORPHINE SULFATE 2 MG/ML INJ IV PUSH ONE (20:45)
--- NOTE | 2017-04-08 20:45 | PD ---
HPI Chief Complaint: Abdominal Pain Time Seen by Provider: 20:36 Travel History International Travel<30 days: No Contact w/Intl Traveler<30days: No Traveled to known affect area: No History of Present Illness HPI Patient is a 71-year-old female recent diagnosis of metastatic ovarian cancer presents emergency department with abdominal pain for the past 8 hours, patient recently had a nephrostomy tube placed on the left side secondary to urinary obstruction secondary to her underlying malignancy. Patient denies any nausea vomiting diarrhea blood in the stool or constipation. She denies any fevers. She states she is not on chemotherapy for the last dose was a week ago, she states she scheduled to start more chemotherapy next week if she is healthy enough to do so. She is also stating that she is supposed to have a more temporary drain placed in her left kidney next week. Her urologist is Dr. Merrill. States that her urine in her urostomy bag has cleared it used to be bloody and now was nice and clear. States her pain is severe, associated signs symptoms and context as above, all of her abdomen but chiefly in the left lower quadrant PFSH Past Medical History Blood Disorders: No Heart Rhythm Problems: No Cancer: Yes (OVARIAN, METASTATIC CANCER TO ABDOMEN) Cardiovascular Problems: Yes High Cholesterol: No Chemotherapy: Yes Chest Pain: No Congestive Heart Failure: No Diabetes: No Endocrine: No Gastrointestinal Disorders: Yes (ASCITIS) Genitourinary: No Hepatitis: No Hiatal Hernia: No Hypertension: Yes Immune Disorder: No Implanted Vascular Access Dvce: Yes Musculoskeletal: No Neurologic: No Psychiatric: No Reproductive: Yes (OVARIAN CANCER) Respiratory: No Radiation Therapy: No Thyroid Disease: No Past Surgical History Abdominal Surgery: Yes (LAPAROSCOPIC BX) Body Medical Devices: PORT IN RIGHT CHEST Cardiac Surgery: No Ear Surgery: No Endocrine Surgery: No Eye Surgery: No Genitourinary Surgery: No Gynecologic Surgery: Yes (PARTIAL HYSTERECTOMY) Oral Surgery: No Pacemaker: No Thoracic Surgery: No Other Surgery: Yes Social History Alcohol Use: No Tobacco Use: No Substance Use: Yes (MARIJUANA) Allergies-Medications (Allergen,Severity, Reaction): Coded Allergies: acetaminophen (Unverified Allergy, Severe, VOMITING, 04/08/17) ondansetron (Verified Allergy, Unknown, 04/08/17) Reported Meds & Prescriptions Reported Meds & Active Scripts Active Ultram (Tramadol HCl) 50 Mg Tab 50 Mg PO Q6H PRN Lisinopril 40 Mg Tab 40 Mg PO DAILY Reported Vitamin D (Cholecalciferol) 5,000 Unit Tab 5,000 Unit PO DAILY [move right (otc)] 1 Tab PO DAILY Fish Oil 500 Mg Cap 500 Mg PO DAILY Multi For Her (Multiple Vitamins W/ Minerals) Cap 1 Tab OR DAILY Review of Systems Except as stated in HPI: all other systems reviewed are Neg Physical Exam Narrative GENERAL: Well-developed well-nourished in no obvious distress. SKIN: Focused skin assessment warm/dry. Left-sided nephrostomy tube site clean dry and intact, clear yellow drainage HEAD: Atraumatic. Normocephalic. EYES: Pupils equal and round. No scleral icterus. No injection or drainage. ENT: No nasal bleeding or discharge. Mucous membranes pink and moist. NECK: Trachea midline. No JVD. CARDIOVASCULAR: Regular rate and rhythm. No murmur appreciated. RESPIRATORY: No accessory muscle use. Clear to auscultation. Breath sounds equal bilaterally. GASTROINTESTINAL: Abdomen soft, non-tender, nondistended. Hepatic and splenic margins not palpable. No rebound no percussive tenderness. No masses felt MUSCULOSKELETAL: No obvious deformities. No clubbing. No cyanosis. No edema. NEUROLOGICAL: Awake and alert. No obvious cranial nerve deficits. Motor grossly within normal limits. Normal speech. PSYCHIATRIC: Appropriate mood and affect; insight and judgment normal. Data Data Last Documented VS Vital Signs Date Time Temp Pulse Resp B/P (MAP) Pulse Ox O2 Delivery O2 Flow Rate FiO2 04/09/17 00:03 04/09/17 00:02 68 16 98 Room Air 04/08/17 19:30 98.1 Orders Orders Complete Blood Count With Diff (04/08/17 20:42) Comprehensive Metabolic Panel (04/08/17 20:42) Lipase (04/08/17 20:42) Prothrombin Time / Inr (Pt) (04/08/17 20:42) Act Partial Throm Time (Ptt) (04/08/17 20:42) Urinalysis - C+S If Indicated (04/08/17 20:42) Iv Access Insert/Monitor (04/08/17 20:42) Ecg Monitoring (04/08/17 20:42) Oximetry (04/08/17 20:42) Sodium Chloride 0.9% Flush (Ns Flush) (04/08/17 20:45) Morphine Inj (Morphine Inj) (04/08/17 20:45) Promethazine Inj (Phenergan Inj) (04/08/17 21:00) Tramadol (Ultram) (04/09/17 00:00) Ed Discharge Order (04/08/17 23:49) Labs Laboratory Tests Test 04/08/17 20:58 04/08/17 21:44 White Blood Count 8.7 TH/MM3 Red Blood Count 3.38 MIL/MM3 Hemoglobin 11.0 GM/DL Hematocrit 32.2 % Mean Corpuscular Volume 95.4 FL Mean Corpuscular Hemoglobin 32.5 PG Mean Corpuscular Hemoglobin Concent 34.1 % Red Cell Distribution Width 16.9 % Platelet Count 180 TH/MM3 Mean Platelet Volume 8.6 FL Neutrophils (%) (Auto) 70.2 % Lymphocytes (%) (Auto) 16.6 % Monocytes (%) (Auto) 12.0 % Eosinophils (%) (Auto) 0.3 % Basophils (%) (Auto) 0.9 % Neutrophils # (Auto) 6.1 TH/MM3 Lymphocytes # (Auto) 1.4 TH/MM3 Monocytes # (Auto) 1.0 TH/MM3 Eosinophils # (Auto) 0.0 TH/MM3 Basophils # (Auto) 0.1 TH/MM3 CBC Comment DIFF FINAL Differential Comment Prothrombin Time 9.8 SEC Prothromb Time International Ratio 1.0 RATIO Activated Partial Thromboplast Time 24.3 SEC Blood Urea Nitrogen 21 MG/DL Creatinine 1.22 MG/DL Random Glucose 117 MG/DL Total Protein 7.7 GM/DL Albumin 3.5 GM/DL Calcium Level 9.4 MG/DL Alkaline Phosphatase 67 U/L Aspartate Amino Transf (AST/SGOT) 82 U/L Alanine Aminotransferase (ALT/SGPT) 24 U/L Total Bilirubin 0.5 MG/DL Sodium Level 131 MEQ/L Potassium Level 5.4 MEQ/L Chloride Level 101 MEQ/L Carbon Dioxide Level 20.5 MEQ/L Anion Gap 10 MEQ/L Estimat Glomerular Filtration Rate 44 ML/MIN Lipase 142 U/L Urine Color YELLOW Urine Turbidity HAZY Urine pH 6.0 Urine Specific [place] 1.021 Urine Protein 100 mg/dL Urine Glucose (UA) NEG mg/dL Urine Ketones 10 mg/dL Urine Occult Blood MOD Urine Nitrite NEG Urine Bilirubin NEG Urine Urobilinogen LESS THAN 2.0 MG/DL Urine Leukocyte Esterase SMALL Urine RBC /hpf Urine WBC 8 /hpf Urine Squamous Epithelial Cells <1 /hpf Urine Bacteria RARE /hpf Urine Hyaline Casts 1 /lpf Urine Mucus MOD /lpf Microscopic Urinalysis Comment CULT NOT INDICATED MDM Medical Decision Making Medical Screen Exam Complete: Yes Emergency Medical Condition: Yes Differential Diagnosis Mass-effect related pain, obstruction unlikely, acute abdomen unlikely. Narrative Course Patient 71-year-old female with a history of metastatic disease presents emergency department for evaluation of abdominal pain, abdominal examination is benign, she does have a nephrostomy tube in place with clear yellow drainage, initial workup with CBC CMP and UA from the nephrostomy site is fairly unremarkable. Patient was given pain medicine and is feeling much better, discussed initially ordered a CAT scan but she just had one a few days ago, the patient would like to avoid additional radiation at this time. She is in quite high spirits at this time and appears quite comfortable and will follow up with her oncologist Dr. Mejia on Tuesday. She is stable for discharge. Diagnosis Primary Impression: Abdominal pain Med/Other Pt SpecificInfo: Prescription(s) given Scripts Tramadol (Ultram) 50 Mg Tab 50 MG PO Q6H Y for PAIN, #30 TAB 0 Refills Prov: Matthew Klein MD 04/08/17 Disposition: 01 DISCHARGE HOME Condition: Stable Matthew Klein MD Apr 08, 2017 20:45
[2017-04-08] MEDS ORDERED: PROMETHAZINE INJ 25 MG/ML VIAL IM ONE (21:00)
[2017-04-08 21:12] LABS: AUTOMATED NEUTROPHIL # 6.1 TH/MM3 (1.8-7.7); BASOPHIL # 0.1 TH/MM3 (0-0.2); BASOPHIL % 0.9 % (0.0-2.0); EOSINOPHIL % 0.3 % (0.0-4.0); HEMATOCRIT 32.2 % (35.0-46.0); LYMPH % 16.6 % (9.0-44.0); LYMPHOCYTE # 1.4 TH/MM3 (1.0-4.8); MEAN CELL VOLUME 95.4 FL (80.0-100.0); MEAN CORPUSCULAR HEMOGLOBIN 32.5 PG (27.0-34.0); MEAN CORPUSCULAR HGB CONC 34.1 % (32.0-36.0); MEAN PLATELET VOLUME 8.6 FL (7.0-11.0); NEUT % 70.2 % (16.0-70.0); PLATELET COUNT 180 TH/MM3 (150-450); RED BLOOD COUNT 3.38 MIL/MM3 (4.00-5.30); RED CELL DISTRIBUTION WIDTH 16.9 % (11.6-17.2); WHITE BLOOD COUNT 8.7 TH/MM3 (4.0-11.0)
[2017-04-08 21:22] LABS: PROTHROMBIN TIME - PATIENT 9.8 SEC (9.8-11.6)
[2017-04-08 21:29] LABS: BLOOD UREA NITROGEN 21 MG/DL (7-18); TOTAL BILIRUBIN ADULT 0.5 MG/DL (0.2-1.0)
[2017-04-08 21:31] LABS: ALKALINE PHOSPHATASE 67 U/L (45-117); TOTAL PROTEIN 7.7 GM/DL (6.4-8.2)
[2017-04-08 21:49] LABS: ALBUMIN 3.5 GM/DL (3.4-5.0); ALT (GPT) 24 U/L (10-53); AST (GOT) 82 U/L (15-37); BICARBONATE 20.5 MEQ/L (21.0-32.0); CALCIUM 9.4 MG/DL (8.5-10.1); CHLORIDE 101 MEQ/L (98-107); CREATININE 1.22 MG/DL (0.50-1.00); GLOMERULAR FILTRATION RATE 44 ML/MIN (>89); GLUCOSE,RANDOM 117 MG/DL (74-106); SODIUM (NA) 131 MEQ/L (136-145)
[2017-04-08 22:18] LABS: BACTERIA, URINE RARE /hpf; BILIRUBIN, URINE NEG (NEG); BLOOD, URINE MOD (NEG); GLUCOSE,URINE NEG (NEG); HYALINE CAST, URINE 1 /lpf (RARE); KETONE, URINE 10 mg/dL (NEG); MUCUS URINE MOD /lpf (OCC); NITRITE,URINE NEG (NEG); SQUAMOUS EPITHELIAL CELL URINE <1 /hpf (0-5); URINE COLOR YELLOW (YELLW/STRAW); URINE LEUKOCYTE ESTERASE SMALL (NEG)
[2017-04-08] MEDS ORDERED: TRAM50 PO (23:49)
[2017-04-09] MEDS ORDERED: traMADol HCL 50 MG TAB PO ONE
[2017-04-09 00:02] VITALS: BP 120/62; PULSE 68; RESP 16; O2SAT 98
== END 2017-04-09 00:04 | disposition home or self-care (01) ==
LOC: NEPE 19:29
DX: R10.9 Unspecified abdominal pain (principal); C56.9 Malignant neoplasm of unspecified ovary; I10 Essential (primary) hypertension
CPT/HCPCS: 80053; 81001; 83690; 85025; 85610; 85730; 96372; 96374; 99284; J2270; J2550

== ENCOUNTER 2017-04-12 06:27 | Day surgery (SDC) | payer MEDICARE ==
[~2017-04-12] VITALS: Ht 152.4 cm; Wt 56.8 kg
[~2017-04-12 06:27] MED LIST changes: +TRAM50 PO
[2017-04-12 06:45] VITALS: BP 106/68; PULSE 97; RESP 20; TEMP 98; O2SAT 98
[2017-04-12] MEDS ORDERED: PROB1CHW4 CHEW (06:46)
[2017-04-12] MEDS ORDERED: LEVOFLOXACIN 500 MG PREMIX INJ 100 ML IV ONE (08:30)
[2017-04-12] MEDS ORDERED: MIDAZOLAM HCL 2 MG/2 ML VIAL ONE ×2 (09:15→09:44)
[2017-04-12] MEDS ORDERED: fentaNYL CITRATE 250 MCG/5 ML AMP ONE (09:16)
--- NOTE | 2017-04-12 10:14 | PD.RAD ---
Post Procedure Progress Note Pre Procedure Diagnosis: (1) Ovarian cancer Post Procedure Diagnosis: (1) Ovarian cancer Procedure Date: Apr 12, 2017 Supervising Radiologist: Peyman Jordan Proceduralist/Assist: Stephen Guajardo, RT(R), Lesa Griffin RT(R) Anesthesia: Conscious Sedation Plan of Activity Patient to Unit: ROPU Patient Condition: Good See PACS Report for procedural detail/treatment Drainage Procedure Procedure 1 Procedure Type: Ureteral Stent Procedure: Placement (8 fr) Peyman Jordan MD Apr 12, 2017 10:14
[2017-04-12 10:20] VITALS: BP 85/58; PULSE 88; RESP 18; TEMP 97.7; O2SAT 94
[2017-04-12 10:35] VITALS: BP 115/67; PULSE 81; RESP 18; O2SAT 95
--- NOTE | 2017-04-12 10:56 | RADRPT ---
EXAM DATE/TIME: 04/12/2017 10:57 [facility] COMPARISON: No previous studies available for comparison. INDICATIONS : Patient with a history of hydronephrosis in need of nephroureteral stent. MEDICAL HISTORY : Ovarian Cancer-METS HTN SURGICAL HISTORY : Hysterectomy ENCOUNTER: Subsequent ACUITY: 1 week PAIN SCORE: 0/10 FLUORO TIME: 3.2 minutes IMAGE SERIES: 2 SEDATION TIME: 30 minutes CONTRAST: 5 cc Omnipaque (iohexol) 350 MEDICATION(S): 1.) 5 mg midazolam (Versed) IV 2.) 150 mcg fentanyl (Sublimaze) IV DEVICE(S): 1.) 8 South African nephroureteral stent 8x22cm PROCEDURE : 1. Percutaneous antegrade pyelogram 2. Conversion of nephrostomy tube to nephroureteral stent 3. Conscious sedation with continuous EKG and oximetry monitoring The risks, benefits and alternatives to the procedure were explained and verbal and written consent w as obtained. The site was prepped in sterile fashion. Full sterile technique was used, including ca p, mask, sterile gloves and gown and a large sterile sheet. Hand hygiene and 2% chlorhexidine and/or betadine/alcohol prep was utilized per protocol for cutaneous antisepsis. The skin and subcutaneous tissues were infiltrated with local anesthetic solution. Percutaneous antegrade pyelogram was performed to delineate the urinary tract. A guidewire was placed through the previous placed nephrostomy into the bladder and over this the prescribed stent was placed. Follow-up pyelogram demonstrates good position. Conscious sedation was performed with the prescribed dosages and duration as above in the presence of an independent trained radiology nurse to assist in the monitoring of the patient. EKG and oximetry remained stable throughout the procedure. The patient tolerated the procedure well and there were no complications. CONCLUSION: Uncomplicated stent as above. Peyman Jordan MD on April 12, 2017 at 10:52 Board Certified Radiologist. This report was verified electronically.
[2017-04-12 11:05] VITALS: BP 98/66; PULSE 87; RESP 18; O2SAT 97
[2017-04-12 11:35] VITALS: BP 95/58; PULSE 86; RESP 18; O2SAT 95
== END 2017-04-12 12:11 | disposition home or self-care (01) ==
LOC: HROP 06:27 → HRIP 06:28 → HROP 12:11
PROVIDERS: ATTEND Urology
DX: N13.30 Unspecified hydronephrosis (principal); C56.9 Malignant neoplasm of unspecified ovary; I10 Essential (primary) hypertension
CPT/HCPCS: 50693; 99152; 99153; C1769; C1887; C2617; J1956; J2250; J3010; C1877

== ENCOUNTER 2017-05-12 08:56 | Day surgery (SDC) | payer MEDICARE ==
[~2017-05-12] VITALS: Ht 154.9 cm; Wt 56.9 kg
[~2017-05-12 08:56] MED LIST changes: -CHOL50006 PO; -FISH500C PO; +PROB1CHW4 CHEW
[2017-05-12] MEDS ORDERED: IOHEXOL 350 MG/ML 50 ML BTL (for RAD DIAG) OTHER ONE (08:57)
[2017-05-12] MEDS ORDERED: ceFAZolin 2 GM PREMIX 50 ML ONE (09:27)
[2017-05-12] MEDS ORDERED: METOPROLOL TARTRATE 25 MG TAB PO PRN (09:45)
[2017-05-12] MEDS ORDERED: ceFAZolin 2 GM PREMIX 50 ML IV SCH (09:45)
[2017-05-12] MEDS ORDERED: POVIDONE IODINE 5% (ANTISEPSIS KIT) 4 APPLICATIONS EACH NARE PRN (09:45)
[2017-05-12] MEDS ORDERED: SODIUM CHLORID 0.9% 500 ML IV PRN (09:45)
[2017-05-12] MEDS ORDERED: CHLORHEXIDINE GLUCONATE 2 % 1 PACK (2 CLOTHS) TOPICAL PRN (09:45)
[2017-05-12] MEDS ORDERED: LACTATED RINGER'S 1000 ML IV PRN (09:45)
[2017-05-12] MEDS ORDERED: INSULIN HUMAN REGULAR 1,000 UNITS/10 ML VIAL SQ PRN (09:45)
[2017-05-12] MEDS ORDERED: mega red PO (09:46)
[2017-05-12] MEDS ORDERED: PROPOFOL 200 MG/20 ML AMP IV ONE (12:00)
[2017-05-12] MEDS ORDERED: PHENYLEPH/NS 1000 MCG/10 ML SYR IV ONE (12:00)
[2017-05-12] MEDS ORDERED: LIDOCAINE HCL 1% PF 5 ML SYRINGE OTHER ONE (12:00)
[2017-05-12] MEDS ORDERED: MIDAZOLAM HCL 2 MG/2 ML VIAL ONE ×3 (12:43→16:53)
[2017-05-12] MEDS ORDERED: MORPHINE SULFATE 4 MG/ML INJ ONE (12:44)
--- NOTE | 2017-05-12 12:45 | PD.OP ---
Operative Report Date of Surgery: May 12, 2017 Preoperative Diagnosis: Ovarian cancer with acute renal failure and bilateral hydronephrosis Postoperative Diagnosis: Same Procedure: Cystoscopy, right retrograde pyelogram, right double-J stent insertion. Removal of left double-J stent, left ureteroscopy with attempted ureteral stent placement Anesthesia: General LMA Surgeon: Anastacio Merrill Power Plant Superintendent(s): None Resident Surgeon: None Operation and Findings: 71-year-old female with history of ovarian cancer who had worsening renal function. Recent CT scan showed some collecting system fullness on the right side. One month ago she underwent left percutaneous nephrostomy tube placement with internalization of a left double-J stent. Decision was made to bring the patient to the operating room to undergo attempted cystoscopy with right double- J stent insertion. Risk and benefits were discussed preoperatively and she is willing to proceed. The patient is brought to the operating room and identified by myself as Kaelyn Lemos. She was placed in the dorsal lithotomy position, prepped and draped usual sterile fashion, received preprocedure antibiotics and general LMA anesthesia was administered. 22 Armenian cystoscope was inserted in the bladder and the right ureteral orifice was identified. A 5 Armenian open catheter was inserted into the distal right ureteral orifice and retrograde pyelogram was then performed. Some fullness of the ureter and right collecting system was identified along with some tortuosity of the ureter causing kinking.. A 0.35 sensor wire was then passed through the open-ended catheter with a good curl in the kidney. A 6 Armenian 22 cm right double-J stent was then passed over wire with a good curl in the kidney and the bladder. On fluoroscopy, the left stent appeared to have migrated downward in the left ureter. Therefore using an alligator grasper the stent was brought to the urethral meatus. A 0.35 sensor wire was then passed through the stent but the wire would not proceed up to the kidney. Multiple attempts were made to try to advance the wire up the ureter on the left side. Due to tortuosity of the ureter this was unsuccessful. A rigid ureteroscope was then passed up the left ureter with an air perforation identified. A 0.35 sensor are was passed through the ureteroscope beyond the area of injury and the wire was then left in place in the mid ureter. The patient was awoken and extubated and then transferred to the recovery room in stable condition. She will be referred to undergo left percutaneous nephrostomy tube placement with nephroureteral stenting using the wires a guide down the ureter. Anastacio Merrill DO May 12, 2017 12:45
[2017-05-12] MEDS ORDERED: *morphine SULFATE 4 MG/ML PERIprocedure ONLY ONE ×2 (12:57→13:47)
--- NOTE | 2017-05-12 13:40 | EKG ---
Date Performed: 05/12/2017 Time Performed: 09:26:59 PTAGE: 71 years EKG: Sinus rhythm LEFT AXIS DEVIATION POSSIBLE ANTERIOR MYOCARDIAL INFARCTION , PROBABLY OLD ABNORMAL ECG PREVIOUS TRACING : 05/28/2011 11.48 No significant change from previous tracing noted. DOCTOR: Mark Sheikh Interpretating Date/Time 05/12/2017 13:38:49
[2017-05-12] MEDS ORDERED: DO NOT ADM ANY ANTICOAGULANT DRUGS PRN (14:30)
[2017-05-12] MEDS ORDERED: IOHEXOL 300 MG/ML 100 ML BTL (for Rad CT) OTHER ONE (17:01)
--- NOTE | 2017-05-12 17:12 | PD.RAD ---
Post Procedure Progress Note Pre Procedure Diagnosis: (1) Ovarian cancer (2) Hydronephrosis due to obstruction of ureter Post Procedure Diagnosis: (1) Hydronephrosis due to obstruction of ureter (2) Ovarian cancer Procedure Date: May 12, 2017 Supervising Radiologist: Stiven Monroe Proceduralist/Assist: Rubia Coombs, RT(R)(), Den Littlejohn RT(R) Anesthesia: Conscious Sedation Plan of Activity Patient to Unit: PACU Patient Condition: Good See PACS Report for procedural detail/treatment Stiven Monroe MD May 12, 2017 17:12
--- NOTE | 2017-05-12 17:54 | RADRPT ---
EXAM DATE/TIME: 05/12/2017 16:00 [facility] COMPARISON: NEPHROURETERAL CATHETER, LEFT, April 02, 2017, 16:00. INDICATIONS : Patient with history of hydronephrosis in need of nephroureteral stent placement. MEDICAL HISTORY : Ovarian Cancer- METS HTN Acute renal failure Hydronephrosis SURGICAL HISTORY : Hysterectomy ENCOUNTER: Initial ACUITY: 1 day PAIN SCORE: 10/10 LOCATION: Left Abdomen FLUORO TIME: 4.1 minutes IMAGE SERIES: 5 SEDATION TIME: 40 minutes CONTRAST: 15 cc Omnipaque (iohexol) 350 MEDICATION(S): 1.) 3 mg midazolam (Versed) IV 2.) 200 mcg fentanyl (Sublimaze) IV DEVICE(S): 1.) 8 Palestinian 24 cm nephroureteral stent Expel w/ Twist Loc PROCEDURE : 1. Ultrasound-guided puncture of the kidney. 2. Antegrade percutaneous pyelogram. 3. Percutaneous nephroureteral stent placement. 4. Conscious sedation with continuous EKG and oximetry monitoring. The risks, benefits and alternatives to the procedure were explained and verbal and written consent w as obtained. The site was prepped in sterile fashion. Full sterile technique was used, including ca p, mask, sterile gloves and gown and a large sterile sheet. Hand hygiene and 2% chlorhexidine and/or betadine/alcohol prep was utilized per protocol for cutaneous antisepsis. Sterile gel and sterile p robe cover were utilized for ultrasound guidance. The skin and subcutaneous tissues were infiltrated with local anesthetic solution. With ultrasound and fluoroscopic guidance the selected kidney was punctured and a percutaneous antegr charles pyelogram was performed demonstrating a dilated collecting system. Serial dilatation was perform ed and the prescribed nephroureteral stent was placed with the proximal portion within the renal pelv is and the distal extent in the urinary bladder. Injection of positive contrast demonstrates good po sition of the catheter. Conscious sedation was performed with the prescribed dosages and duration as above in the presence of an independent trained radiology nurse to assist in the monitoring of the patient. EKG and oximetry remained stable throughout the procedure. The patient tolerated the procedure well and there were n o complications. The patient was sent to post anesthesia recovery in stable condition. CONCLUSION: Uncomplicated nephroureteral stent placement as above. Stiven Monroe MD on May 12, 2017 at 17:52 Board Certified Radiologist. This report was verified electronically.
[2017-05-12] MEDS ORDERED: *MEPERIDINE 25 MG INJ VIAL PERIprocedural Use ONLY ONE (19:01)
[2017-05-12] MEDS ORDERED: *PROMETHAZINE 25 MG/ML VIAL PERIprocedural use ONLY ONE (19:05)
[2017-05-12 21:49] VITALS: BP 142/91; PULSE 99; RESP 19; TEMP 98.4; O2SAT 97
== END 2017-05-12 22:05 | disposition home or self-care (01) ==
LOC: HSDC 08:56
PROVIDERS: ATTEND Urology
DX: N13.30 Unspecified hydronephrosis (principal); N13.8 Other obstructive and reflux uropathy; N99.81 Other intraoperative complications of genitourinary system; N17.9 Acute kidney failure, unspecified; C56.9 Malignant neoplasm of unspecified ovary; I10 Essential (primary) hypertension
CPT/HCPCS: 00910; 50433; 52332; 93005; 99152; 99153; C1769; C1877; C1887; C1894; J0690; J2175; J2250; J2270; J2370; J2550; J3010; J7120; Q9967

== ENCOUNTER 2017-05-20 07:29 | Day surgery (SDC) | payer MEDICARE ==
[~2017-05-20] VITALS: Ht 154.9 cm; Wt 53.6 kg
[~2017-05-20 07:29] MED LIST changes: -TRAM50 PO; -[UNRECOGNIZED DRUG - OTHER] PO; +mega red PO
[2017-05-20] MEDS ORDERED: IOHEXOL 350 MG/ML 50 ML BTL (for RAD DIAG) OTHER ONE (07:30)
[2017-05-20 07:56] VITALS: BP 102/67; PULSE 77; RESP 20; TEMP 97.5; O2SAT 95
[2017-05-20] MEDS ORDERED: TRAM50TA PO (08:00)
[2017-05-20] MEDS ORDERED: CIPR500T2 PO (08:00)
[2017-05-20] MEDS ORDERED: IMPLANTED VASCULAR ACCESS PORT - SODIUM CHLORIDE FLUSH PRN IV FLUSH (08:15)
[2017-05-20] MEDS ORDERED: SODIUM CHLOR 0.9% 1000 ML INJ 1,000 ML IV SCH (08:15)
[2017-05-20] MEDS ORDERED: LEVOFLOXACIN 500 MG PREMIX INJ 100 ML IV SCH (08:15)
[2017-05-20] MEDS ORDERED: MIDAZOLAM HCL 2 MG/2 ML VIAL ONE ×2 (08:18→08:36)
[2017-05-20] MEDS ORDERED: IMPLANTED VASCULAR ACCESS PORT - SODIUM CHLORIDE FLUSH IV FLUSH SCH (08:30)
[2017-05-20 09:25] VITALS: BP 101/69; PULSE 65; RESP 18; TEMP 97.3; O2SAT 99
[2017-05-20 09:40] VITALS: BP 109/74; PULSE 76; RESP 18; O2SAT 99
[2017-05-20 10:00] VITALS: BP 123/76; PULSE 73; RESP 18; O2SAT 99
--- NOTE | 2017-05-20 10:18 | PD.RAD ---
Post Procedure Progress Note Pre Procedure Diagnosis: (1) Hydronephrosis due to obstruction of ureter Post Procedure Diagnosis: (1) Hydronephrosis due to obstruction of ureter Procedure Date: May 20, 2017 Supervising Radiologist: Stiven Monroe Proceduralist/Assist: Den Littlejohn, RT(R), Lesa Griffin RT(R) Anesthesia: Conscious Sedation Plan of Activity Patient to Unit: ROPU Patient Condition: Good See PACS Report for procedural detail/treatment Stiven Monroe MD May 20, 2017 10:18
[2017-05-20 10:30] VITALS: BP 122/78; PULSE 74; RESP 18; O2SAT 99
--- NOTE | 2017-05-20 10:45 | RADRPT ---
EXAM DATE/TIME: 05/20/2017 08:35 [facility] COMPARISON: No previous studies available for comparison. INDICATIONS : Patient presents with hydronephrosis in need of nephrostomy tube exchange with possible ureteral sten t placement. MEDICAL HISTORY : Ovarian cancer HTN SURGICAL HISTORY : Partial hysterectomy at 30 y/o Debulking surgery 2011 ENCOUNTER: Sequela ACUITY: 1 month PAIN SCORE: 5/10 LOCATION: Bilateral lower quadrant FLUORO TIME: 2.7 minutes IMAGE SERIES: 0 SEDATION TIME: 30 minutes CONTRAST: 10 cc Omnipaque (iohexol) 350 MEDICATION(S): 1.) 3 mg midazolam (Versed) IV 2.) 150 mcg fentanyl (Sublimaze) IV Vancomycin within 2 hours of procedure, Ancef (or alternative) within 1 hour of procedure. DEVICE(S): 1.) 8 Ghanaian 24cm Polaris catheter 2.) 8 Ghanaian 25cm expel PROCEDURE : 1. left ureteral stent placement through existing nephrostomy tract 2. Exchange of nephrostomy catheter The risks, benefits and alternatives to the procedure were explained and verbal and written consent w as obtained. The site was prepped in sterile fashion. Full sterile technique was used, including ca p, mask, sterile gloves and gown and a large sterile sheet. Hand hygiene and 2% chlorhexidine and/or betadine/alcohol prep was utilized per protocol for cutaneous antisepsis. The skin and subcutaneous tissues were infiltrated with local anesthetic solution. Guidewire was advanced through the existing nephroureteral catheter and the catheter was removed over wire. A new 24 cm length ureteral stent was then advanced over the wire and formed at the position. Next, an 8 Ghanaian nephrostomy catheter was placed over a second safety wire into the renal collecting system and formed. Contrast injection demonstrates good position for both catheters. Conscious sedation was performed with the prescribed dosages in duration as above in the presence of an independent trained radiology nurse the to assist in the monitoring of the patient. EKG and oximet ry remained stable throughout the procedure. The patient tolerated the procedure well and there were no immediate postprocedural palpitations. CONCLUSION: 1. Uncomplicated placement of left ureteral stent and exchange of nephrostomy catheter. No Plan: Nephrostomy catheter will be capped and patient return for nephrostomy catheter exchange if she remai ns asymptomatic. Stiven Monroe MD on May 20, 2017 at 10:18 Board Certified Radiologist. This report was verified electronically.
== END 2017-05-20 11:20 | disposition home or self-care (01) ==
LOC: HROP 07:29 → HRIP 07:32 → HROP 11:20
PROVIDERS: ATTEND Radiology Diagnostic Radiology
DX: N13.30 Unspecified hydronephrosis (principal); N13.5 Crossing vessel and stricture of ureter without hydronephrosis; C56.9 Malignant neoplasm of unspecified ovary; C79.9 Secondary malignant neoplasm of unspecified site; I10 Essential (primary) hypertension
CPT/HCPCS: 50693; 75984; 99152; 99153; C1729; C1769; C1894; C2617; J1956; J2250; J3010; J7030; Q9967

== ENCOUNTER 2017-05-25 07:21 | Day surgery (SDC) | payer MEDICARE ==
[~2017-05-25] VITALS: Ht 154.9 cm; Wt 54.0 kg
[~2017-05-25 07:21] MED LIST changes: +CIPR500T2 PO; -MULTCAP OR; +TRAM50TA PO
[2017-05-25] MEDS ORDERED: IOHEXOL 350 MG/ML 50 ML BTL (for RAD DIAG) PEG ONE (07:22)
[2017-05-25 07:37] VITALS: BP 131/85; PULSE 88; RESP 20; TEMP 97.7; O2SAT 97
[2017-05-25] MEDS ORDERED: LORazepam 2 MG/ML VIAL ONE (07:57)
[2017-05-25] MEDS ORDERED: SODIUM CHLORIDE 0.9% 1000 ML IV SCH (08:00)
[2017-05-25 09:10] VITALS: BP 136/84; PULSE 80; RESP 20; TEMP 97.8; O2SAT 96
[2017-05-25] MEDS ORDERED: IMPLANTED VASCULAR ACCESS PORT - SODIUM CHLORIDE FLUSH IV FLUSH SCH (09:45)
[2017-05-25] MEDS ORDERED: IMPLANTED VASCULAR ACCESS PORT - SODIUM CHLORIDE FLUSH PRN IV FLUSH (09:45)
--- NOTE | 2017-05-25 13:15 | RADRPT ---
EXAM DATE/TIME: 05/25/2017 08:30 [facility] COMPARISON: CT ABDOMEN & PELVIS W CONTRAST, April 02, 2017, 12:49. INDICATIONS : Recently placed ureteral stent and nephrostomy catheter. Patient has been able to tolerate nephrostom y catheter challenge and now presents for antegrade nephrostogram and catheter removal. MEDICAL HISTORY : Ovarian cancer Ascites HTN Anxiety SURGICAL HISTORY : Port placement Partial hysterectomy Laparoscopic bx ENCOUNTER: Subsequent ACUITY: 1 month PAIN SCORE: 4/10 LOCATION: Bilateral lower quadrant FLUORO TIME: 0.9 minutes IMAGE SERIES: 0 CONTRAST: 10 cc Omnipaque (iohexol) 350 PROCEDURE : 1. Antegrade pyelogram. 2. Nephrostomy tube removal. The risks, benefits and alternatives to the procedure were explained and verbal and written consent w as obtained. The site was prepped in sterile fashion. Full sterile technique was used, including ca p, mask, sterile gloves and gown and a large sterile sheet. Hand hygiene and 2% chlorhexidine and/or betadine/alcohol prep was utilized per protocol for cutaneous antisepsis. The skin and subcutaneous tissues were infiltrated with local anesthetic solution. With fluoroscopic guidance the existing nephrostomy catheter was injected. Contrast injection demonst rates residual hydronephrosis with clearance of contrast through the ureteral catheter. Therefore, t he percutaneous nephrostomy catheter was removed. Direct manual pressure was applied to the site. There were no complications and the patient was sent to post anesthesia recovery in stable condition. CONCLUSION: Uncomplicated nephrostomy tube removal as above. Stiven Monroe MD on May 25, 2017 at 12:17 Board Certified Radiologist. This report was verified electronically.
== END 2017-05-25 10:00 | disposition home or self-care (01) ==
LOC: HROP 07:21 → HRIP 07:26 → HROP 10:00
PROVIDERS: ATTEND Radiology Diagnostic Radiology
DX: N13.30 Unspecified hydronephrosis (principal); R18.8 Other ascites; I10 Essential (primary) hypertension; Z85.43 Personal history of malignant neoplasm of ovary
CPT/HCPCS: 50389; 50431; J1642; J2060; Q9967

== ENCOUNTER 2017-06-10 20:37 | Observation (INO) | payer MEDICARE ==
[~2017-06-10] VITALS: Ht 154.9 cm; Wt 53.0 kg
[~2017-06-10 20:37] MED LIST changes: -CIPR500T2 PO
[2017-06-10 20:41] VITALS: BP 148/90; PULSE 115; RESP 18; TEMP 97.5; O2SAT 100
[2017-06-10] MEDS ORDERED: HYDROmorphone HCL PF 1 MG/ML VIAL IV PUSH ONE (22:15)
[2017-06-10] MEDS ORDERED: HYDROmorphone HCL PF 2 MG/ML VIAL IV PUSH ONE (22:30)
[2017-06-10 23:02] LABS: AUTOMATED NEUTROPHIL # 7.5 TH/MM3 (1.8-7.7); BASOPHIL % 0.5 % (0.0-2.0); EOSINOPHIL % 0.3 % (0.0-4.0); HEMATOCRIT 32.2 % (35.0-46.0); HEMOGLOBIN 10.6 GM/DL (11.6-15.3); LYMPHOCYTE # 0.8 TH/MM3 (1.0-4.8); MEAN CORPUSCULAR HEMOGLOBIN 30.2 PG (27.0-34.0); MEAN CORPUSCULAR HGB CONC 32.9 % (32.0-36.0); MEAN PLATELET VOLUME 9.4 FL (7.0-11.0); MONO % 4.3 % (0.0-8.0); MONOCYTE # 0.4 TH/MM3 (0-0.9); NEUT % 85.9 % (16.0-70.0); PLATELET COUNT 279 TH/MM3 (150-450); RED CELL DISTRIBUTION WIDTH 16.6 % (11.6-17.2); WHITE BLOOD COUNT 8.7 TH/MM3 (4.0-11.0)
[2017-06-10 23:12] LABS: ALBUMIN 3.6 GM/DL (3.4-5.0); ALT (GPT) 19 U/L (10-53); AST (GOT) 48 U/L (15-37); BICARBONATE 18.3 MEQ/L (21.0-32.0); BLOOD UREA NITROGEN 33 MG/DL (7-18); CALCIUM 9.1 MG/DL (8.5-10.1); CHLORIDE 102 MEQ/L (98-107); CREATININE 1.29 MG/DL (0.50-1.00); GLOMERULAR FILTRATION RATE 41 ML/MIN (>89); GLUCOSE,RANDOM 146 MG/DL (74-106); SODIUM (NA) 134 MEQ/L (136-145)
--- NOTE | 2017-06-10 23:14 | RADRPT ---
EXAM DATE/TIME: 06/10/2017 22:46 [facility] COMPARISON: CT ABDOMEN & PELVIS W CONTRAST, April 02, 2017, 12:49. NEPHROSTOMY TUBE REMOVAL, W/FLUORO, LEFT, M arch 2017, 8:30. INDICATIONS : Nausea. Lower abdominal pain. MEDICAL HISTORY : None. Ovarian CA SURGICAL HISTORY : None. ENCOUNTER: Initial ACUITY: 2 days PAIN SCORE: 7/10 LOCATION: Bilateral lower quadrant FINDINGS: Supine and upright views of the abdomen. Bilateral double-J ureteral stents are in place. Scattered g as and stool in the colon. No evidence of free air. Moderate bony degenerative findings of the lumbar spine. 3 mm calcific density in the right hemipelvis correlates with a phlebolith on prior CT. CONCLUSION: Bowel gas pattern within normal limits. Double-J ureteral stents in place. Sreekanth Blue MD on June 10, 2017 at 23:10 Board Certified Radiologist. This report was verified electronically.
[2017-06-10 23:17] LABS: ALKALINE PHOSPHATASE 54 U/L (45-117); TOTAL BILIRUBIN ADULT 0.6 MG/DL (0.2-1.0); TOTAL PROTEIN 7.3 GM/DL (6.4-8.2); TROPONIN I LESS THAN 0.02 NG/ML (0.02-0.05)
--- NOTE | 2017-06-10 23:26 | PD ---
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 It has been 3 weeks that she has had a Stents placed She has had no urinary issues however she has had chronic pain in the ureter area left abdo to flank kidney area. Patient today has had no urine in over 10 hrs , she urinated this morning very scant amount of urine and now she has had no urine for over 10 hours..Pt comes in very distended suprapubic pain and spasm-like pain across her entire lower abdomen. it is severe 10 out of 10 she is curled in a ball and severe pain reaction in the ER. She took 1 hydrocodone without relief, She has not called the Urology doctors for this. PFSH Past Medical History Blood Disorders: No Heart Rhythm Problems: No Cancer: Yes (OVARIAN, METASTATIC CANCER TO ABDOMEN) High Cholesterol: No Chemotherapy: Yes Chest Pain: No Congestive Heart Failure: No Diabetes: No Gastrointestinal Disorders: Yes (ASCITIS) Hypertension: Yes Implanted Vascular Access Dvce: Yes Reproductive: Yes (OVARIAN CANCER) Immunizations Current: Yes Past Surgical History Abdominal Surgery: Yes (LAPAROSCOPIC BX) AICD: No Body Medical Devices: PORT IN RIGHT CHEST Cardiac Surgery: No Ear Surgery: No Endocrine Surgery: No Eye Surgery: No Genitourinary Surgery: No Gynecologic Surgery: Yes (PARTIAL HYSTERECTOMY) Joint Replacement: No Oral Surgery: No Thoracic Surgery: No Other Surgery: Yes (PARTIAL HYSTERECTOMY, BILATERAL OVARY REMOVAL) Social History Alcohol Use: No Tobacco Use: No Substance Use: Yes (MARIJUANA) Allergies-Medications (Allergen,Severity, Reaction): Coded Allergies: acetaminophen (Verified Allergy, Severe, VOMITING, 06/10/17) ondansetron (Verified Allergy, Unknown, 06/10/17) Reported Meds & Prescriptions Reported Meds & Active Scripts Active Lisinopril 40 Mg Tab 40 Mg PO DAILY Reported [colby red] 1 Tab PO DAILY Digestive Advantage Probiotic (Lactobacillus Rhamnosus (GG)) 1 Chew 2 Tab CHEW DAILY Review of Systems Except as stated in HPI: all other systems reviewed are Neg Gastrointestinal: Positive: Abdominal Pain Genitourinary: Positive: Decreased Urinary Output (anuric ) Physical Exam Narrative GENERAL: appear to be in pain holding abdo SKIN: Warm and dry. HEAD: Atraumatic. Normocephalic. EYES: Pupils equal and round. No scleral icterus. No injection or drainage. ENT: No nasal bleeding or discharge. Mucous membranes pink and moist. NECK: Trachea midline. No JVD. CARDIOVASCULAR: Regular rate and rhythm. RESPIRATORY: No accessory muscle use. Clear to auscultation. Breath sounds equal bilaterally. GASTROINTESTINAL: Abdomen distended and tender suprapubic MUSCULOSKELETAL: Extremities without clubbing, cyanosis, or edema. No obvious deformities. NEUROLOGICAL: Awake and alert. No obvious cranial nerve deficits. Motor grossly within normal limits. Five out of 5 muscle strength in the arms and legs. Normal speech. PSYCHIATRIC: Appropriate mood and affect; insight and judgment normal. Data Data Last Documented VS Vital Signs Date Time Temp Pulse Resp B/P (MAP) Pulse Ox O2 Delivery O2 Flow Rate FiO2 06/10/17 20:41 97.5 115 18 148/90 (109) 100 Room Air Orders Orders Urinalysis - C+S If Indicated (06/10/17 22:14) Complete Blood Count With Diff (06/10/17 22:15) Troponin I (06/10/17 22:15) Comprehensive Metabolic Panel (06/10/17 22:15) Lactic Acid (06/10/17 22:15) Abdomen, Flat & Upright (06/10/17 ) Hydromorphone Pf Inj (Dilaudid Pf Inj) (06/10/17 22:30) Urinary Catheter Management AUTUMN.Q8H (06/10/17 23:23) Sodium Chlor 0.9% 1000 Ml Inj (Ns 1000 M (06/10/17 23:30) Urine Culture (06/10/17 23:38) Levofloxacin 750 Mg Premix Inj (Levaquin (06/11/17 00:15) Consult Urology (06/11/17 ) Admit Order (Ed Use Only) (06/11/17 00:47) Ceftriaxone Inj (Rocephin Inj) (06/11/17 23:00) Place In Observation (06/11/17 ) Vital Signs (Adult) Q4H (06/11/17 00:45) Activity Oob Ad [place] (06/11/17 00:45) Intake + Output AUTUMN.QSHIFT (06/11/17 00:45) Diet Regular Basic (06/11/17 Breakfast) Sodium Chlor 0.9% 1000 Ml Inj (Ns 1000 M (06/11/17 01:00) Sodium Chloride 0.9% Flush (Ns Flush) (06/11/17 00:45) Sodium Chloride 0.9% Flush (Ns Flush) (06/11/17 09:00) Metoclopramide Inj (Reglan Inj) (06/11/17 00:45) Comprehensive Metabolic Panel (06/12/17 06:00) Complete Blood Count With Diff (06/12/17 06:00) Scd Bilateral/Knee High AUTUMN.BID (06/11/17 00:45) Oscar Bilateral/Knee High AUTUMN.QSHIFT (06/11/17 00:48) Morphine Inj (Morphine Inj) (06/11/17 00:45) Oxycodone (Roxicodone) (06/11/17 00:45) Docusate Sodium-Senna ([place]-Colace) (06/11/17 09:00) Magnesium Hydroxide Liq (Milk Of Magnesi (06/11/17 00:45) Sennosides (Senokot) (06/11/17 00:45) Bisacodyl Supp (Dulcolax Supp) (06/11/17 00:45) Lactulose Liq (Lactulose Liq) (06/11/17 00:45) Labs Laboratory Tests Test 06/10/17 22:39 06/10/17 23:38 White Blood Count 8.7 TH/MM3 Red Blood Count 3.50 MIL/MM3 Hemoglobin 10.6 GM/DL Hematocrit 32.2 % Mean Corpuscular Volume 92.0 FL Mean Corpuscular Hemoglobin 30.2 PG Mean Corpuscular Hemoglobin Concent 32.9 % Red Cell Distribution Width 16.6 % Platelet Count 279 TH/MM3 Mean Platelet Volume 9.4 FL Neutrophils (%) (Auto) 85.9 % Lymphocytes (%) (Auto) 9.0 % Monocytes (%) (Auto) 4.3 % Eosinophils (%) (Auto) 0.3 % Basophils (%) (Auto) 0.5 % Neutrophils # (Auto) 7.5 TH/MM3 Lymphocytes # (Auto) 0.8 TH/MM3 Monocytes # (Auto) 0.4 TH/MM3 Eosinophils # (Auto) 0.0 TH/MM3 Basophils # (Auto) 0.0 TH/MM3 CBC Comment DIFF FINAL Differential Comment Blood Urea Nitrogen 33 MG/DL Creatinine 1.29 MG/DL Random Glucose 146 MG/DL Total Protein 7.3 GM/DL Albumin 3.6 GM/DL Calcium Level 9.1 MG/DL Alkaline Phosphatase 54 U/L Aspartate Amino Transf (AST/SGOT) 48 U/L Alanine Aminotransferase (ALT/SGPT) 19 U/L Total Bilirubin 0.6 MG/DL Sodium Level 134 MEQ/L Potassium Level 4.0 MEQ/L Chloride Level 102 MEQ/L Carbon Dioxide Level 18.3 MEQ/L Anion Gap 14 MEQ/L Estimat Glomerular Filtration Rate 41 ML/MIN Lactic Acid Level 2.3 mmol/L Troponin I LESS THAN 0.02 NG/ML Urine Color YELLOW Urine Turbidity HAZY Urine pH 6.5 Urine Specific [place] 1.016 Urine Protein 300 mg/dL Urine Glucose (UA) NEG mg/dL Urine Ketones NEG mg/dL Urine Occult Blood MOD Urine Nitrite POS Urine Bilirubin NEG Urine Urobilinogen LESS THAN 2.0 MG/DL Urine Leukocyte Esterase LARGE Urine RBC /hpf Urine WBC /hpf Urine Squamous Epithelial Cells <1 /hpf Urine Amorphous Sediment RARE Urine Bacteria FEW /hpf Urine Mucus FEW /lpf Microscopic Urinalysis Comment CULTURE INDICATED MDM Medical Decision Making Medical Screen Exam Complete: Yes Emergency Medical Condition: Yes Differential Diagnosis uti vs renal obstruction ,vs pyelonephritis ureter spasm other stent failure obstruction Narrative Course pt has UTI and possible stent failure... will need IV antibiotics and admit for Urology consult Diagnosis Primary Impression: UTI (urinary tract infection) Scripts Amlodipine (Norvasc) 5 Mg Tab 5 MG PO DAILY for Blood Pressure Management, #30 TAB Prov: Mel Tolbert PA-C 06/14/17 Oxycodone (Oxycodone) 5 Mg Cap 5 MG PO Q4H Y for PAIN, #30 CAP 0 Refills Prov: Nehemias Cortes MD 06/12/17 Polyethylene Glycol 3350 Powder (Miralax Powder) 17 Gm Powd 17 GM PO DAILY Y for CONSTIPATION, #1 CAN 0 Refills Mix and dissolve one measuring cap-ful (17 grams) in water or juice. Prov: Nehemias Cortes MD 06/12/17 Sennosides-Docusate Sodium (Gnp Senna Plus 8.6-50 mg) 8.6 Mg-50 Mg Tab 1 TAB PO BID for prevent constipation, #60 TAB Prov: Nehemias Cortes MD 06/12/17 Haja Snowden MD Jun 10, 2017 23:26
[2017-06-10] MEDS ORDERED: SODIUM CHLOR 0.9% 1000 ML INJ 1,000 ML IV ONE (23:30)
[2017-06-10 23:50] LABS: AMORPHOUS SEDIMENT, URINE RARE; BACTERIA, URINE FEW /hpf; BILIRUBIN, URINE NEG (NEG); BLOOD, URINE MOD (NEG); GLUCOSE,URINE NEG (NEG); KETONE, URINE NEG (NEG); MUCUS URINE FEW /lpf (OCC); NITRITE,URINE POS (NEG); PH, URINE 6.5 (5.0-8.5); SQUAMOUS EPITHELIAL CELL URINE <1 /hpf (0-5); URINE COLOR YELLOW (YELLW/STRAW); URINE LEUKOCYTE ESTERASE LARGE (NEG)
[2017-06-11] MEDS ORDERED: LEVOFLOXACIN 750 MG PREMIX INJ 150 ML IV ONE (00:15)
[2017-06-11] MEDS ORDERED: SENNOSIDES 8.6 MG TAB PO PRN (00:45)
[2017-06-11] MEDS ORDERED: BISACODYL 10 MG SUPP RECTAL PRN (00:45)
[2017-06-11] MEDS ORDERED: SODIUM CHLORIDE 0.9% FLUSH 10 ML FLUSH IV FLUSH PRN (00:45)
[2017-06-11] MEDS ORDERED: MAGNESIUM HYDROXIDE SUSP 30 ML CUP PO PRN (00:45)
[2017-06-11] MEDS ORDERED: LACTULOSE SYRUP 20 GM/30 ML CUP PO PRN (00:45)
[2017-06-11] MEDS: METOCLOPRAMIDE HCL 10 MG/2 ML VIAL IV PUSH PRN ×3 (01:36→16:55)
[2017-06-11] MEDS: MORPHINE SULFATE 2 MG/ML SYRINGE IV PUSH PRN ×3 (01:37→22:25)
[2017-06-11 01:45] VITALS: BP 147/97; PULSE 83; RESP 20; TEMP 96.2; O2SAT 100
--- NOTE | 2017-06-11 02:17 | HHI.HP ---
[facility] Primary Care Physician Jeane Weaver D.O. Admission Diagnosis uti urinary retention and recent ureter stents Diagnoses: (1) UTI (urinary tract infection) Diagnosis: Principal (2) Intractable pain Diagnosis: Principal (3) Ovarian ca Diagnosis: Principal Travel History International Travel<30 Days: No Contact w/Intl Traveler <30 Da: No Traveled to Known Affected Are: No History of Present Illness This is a 71-year-old female with a PMH of Metastatic Ovarian CA, HTN who presented to the ER w/ complaints of urinary retention and flank pain. S/p Cystoscopy w/ Right Stent and Removal of Left Stent w/ Attempted Ureteral Stent Placement by Dr. Merrill on 05/12/17 for bilateral hydronephrosis. Today w/ worsening left-sided flank pain and minimal urinary output since this morning. Notes some abdominal distention, pain is severe, 10/10, non-radiating. On arrival, BP 148/90, HR 115, O2 sat 100% RA, Afebrile. CBC essentially unremarkable. Creatinine 1.29, previously 1.08 on 06/06/17. Lactic Acid 2.3. UA with significant UTI and hematuria. Abdominal X-ray bowel gas pattern within normal limits, double-J ureteral stents in place. S/p Melchor in ER w/ approx 800ml urine output. S/p Levaquin IV. Follows w/ Dr. Mejia as outpatient for h/o Ovarian CA. Review of Systems Except as stated in HPI: all other systems reviewed are Neg ROS: 14 point review of systems otherwise negative. Past Family Social History Past Medical History PMH: Metastatic Ovarian CA, HTN Past Surgical History PAST SURGICAL HISTORY: Right Chest Port, Partial Hysterectomy, Bilateral Oophorectomy Allergies: Coded Allergies: acetaminophen (Verified Allergy, Severe, VOMITING, 06/10/17) ondansetron (Verified Allergy, Unknown, 06/10/17) Family History PAST FAMILY HISTORY: Reviewed. No h/o DM or CAD Social History PAST SOCIAL HISTORY: Negative for alcohol or tobacco. Positive for Marijuana. Physical Exam Vital Signs Vital Signs Date Time Temp Pulse Resp B/P (MAP) Pulse Ox O2 Delivery O2 Flow Rate FiO2 06/10/17 20:41 97.5 115 18 148/90 (109) 100 Room Air Physical Exam PE: GENERAL: Pleasant middle-aged white female in no acute distress. HEENT: PERRLA, EOMI. No scleral icterus or conjunctival pallor. No lid lag or facial droop. CARDIOVASCULAR: Regular rate and rhythm. No obvious murmurs to auscultation. No chest tenderness to palpation. RESPIRATORY: No obvious rhonchi or wheezing. Clear to auscultation. Breath sounds equal bilaterally. GASTROINTESTINAL: Abdomen soft, suprapubic tenderness to palpation, nondistended. BS normal. Melchor in place MUSCULOSKELETAL: Extremities without clubbing, cyanosis, or edema. No obvious deformities. NEUROLOGICAL: Awake, alert and oriented x4. No focal neurologic deficits. Moving both upper and lower extremities spontaneously. Laboratory Laboratory Tests Test 06/10/17 22:39 06/10/17 23:38 White Blood Count 8.7 Red Blood Count 3.50 Hemoglobin 10.6 Hematocrit 32.2 Mean Corpuscular Volume 92.0 Mean Corpuscular Hemoglobin 30.2 Mean Corpuscular Hemoglobin Concent 32.9 Red Cell Distribution Width 16.6 Platelet Count 279 Mean Platelet Volume 9.4 Neutrophils (%) (Auto) 85.9 Lymphocytes (%) (Auto) 9.0 Monocytes (%) (Auto) 4.3 Eosinophils (%) (Auto) 0.3 Basophils (%) (Auto) 0.5 Neutrophils # (Auto) 7.5 Lymphocytes # (Auto) 0.8 Monocytes # (Auto) 0.4 Eosinophils # (Auto) 0.0 Basophils # (Auto) 0.0 CBC Comment DIFF FINAL Differential Comment Blood Urea Nitrogen 33 Creatinine 1.29 Random Glucose 146 Total Protein 7.3 Albumin 3.6 Calcium Level 9.1 Alkaline Phosphatase 54 Aspartate Amino Transf (AST/SGOT) 48 Alanine Aminotransferase (ALT/SGPT) 19 Total Bilirubin 0.6 Sodium Level 134 Potassium Level 4.0 Chloride Level 102 Carbon Dioxide Level 18.3 Anion Gap 14 Estimat Glomerular Filtration Rate 41 Lactic Acid Level 2.3 Troponin I LESS THAN 0.02 Urine Color YELLOW Urine Turbidity HAZY Urine pH 6.5 Urine Specific [place] 1.016 Urine Protein 300 Urine Glucose (UA) NEG Urine Ketones NEG Urine Occult Blood MOD Urine Nitrite POS Urine Bilirubin NEG Urine Urobilinogen LESS THAN 2.0 Urine Leukocyte Esterase LARGE Urine RBC Urine WBC Urine Squamous Epithelial Cells <1 Urine Amorphous Sediment RARE Urine Bacteria FEW Urine Mucus FEW Microscopic Urinalysis Comment CULTURE INDICATED Date/Time Source Procedure Growth Status 06/10/17 23:38 Urine Clean Catch Urine Culture Pending Received Result Diagram: 06/10/17223806/10/172238 Caprini VTE Risk Assessment Caprini VTE Risk Assessment: No/Low Risk (score <= 1) Caprini Risk Assessment Model Point Value = 1 Point Value = 2 Point Value = 3 Point Value = 5 Age 41-60 Minor surgery BMI > 25 kg/m2 Swollen legs Varicose veins or History of unexplained or recurrent spontaneous Oral contraceptives or hormone replacement Sepsis (< 1 month) Serious lung disease, including pneumonia (< 1 month) Abnormal pulmonary function Acute myocardial infarction Congestive heart failure (< 1 month) History of inflammatory bowel disease Medical patient at bed rest Age 61-74 Arthroscopic surgery Major open surgery (> 45 min) Laparoscopic surgery (> 45 min) Malignancy Confined to bed (> 72 hours) Immobilizing plaster cast Central venous access Age >= 75 History of VTE Family history of VTE Factor V Leiden Prothrombin [id number] Lupus anticoagulant Anticardiolipin antibodies Elevated serum homocysteine Heparin-induced thrombocytopenia Other congenital or acquired thrombophilia Stroke (< 1 month) Elective arthroplasty Hip, pelvis, or leg fracture Acute spinal cord injury (< 1 month) Prophylaxis Regimen Total Risk Factor Score Risk Level Prophylaxis Regimen 0-1 Low Early ambulation 2 Moderate Order ONE of the following: *Sequential Compression Device (SCD) *Heparin 5000 units SQ BID 3-4 Higher Order ONE of the following medications: *Heparin 5000 units SQ TID *Enoxaparin/Lovenox 40 mg SQ daily (WT < 150 kg, CrCl > 30 mL/min) *Enoxaparin/Lovenox 30 mg SQ daily (WT < 150 kg, CrCl > 10-29 mL/min) *Enoxaparin/Lovenox 30 mg SQ BID (WT < 150 kg, CrCl > 30 mL/min) AND/OR *Sequential Compression Device (SCD) 5 or more Highest Order ONE of the following medications: *Heparin 5000 units SQ TID (Preferred with Epidurals) *Enoxaparin/Lovenox 40 mg SQ daily (WT < 150 kg, CrCl > 30 mL/min) *Enoxaparin/Lovenox 30 mg SQ daily (WT < 150 kg, CrCl > 10-29 mL/min) *Enoxaparin/Lovenox 30 mg SQ BID (WT < 150 kg, CrCl > 30 mL/min) AND *Sequential Compression Device (SCD) Assessment and Plan Problem List: (1) UTI (urinary tract infection) ICD Code: N39.0 - Urinary tract infection, site not specified (2) Intractable pain ICD Code: R52 - Pain, unspecified (3) Ovarian ca ICD Code: C56.9 - Malignant neoplasm of unspecified ovary Assessment and Plan A/P: 1. UTI: U/a w/ significant UTI/Hematuria, s/p Bilateral Uteral Stent placement 05/12/[address] Merrill for bilateral hydronephrosis. S/p Levaquin in ER , will continue w/ IV Abx, IVF for hydration. Melchor in place, monitor I/O for decreased urinary output. Consult for Dr. Merrill placed. 2. Intractable Pain: secondary to above, s/p multiple doses of Morphine/ Zofran w/ minimal improvement, continue w/ analgesics/antiemetics as needed. 3. Ovarian CA: follows w/ Dr. Mejia as outpatient, outpatient follow up as scheduled. Will consult as needed. 4. DVT Prophylaxis: SCD/Teds. 5. Social work for d/c planning as needed. 6. Case discussed w/ ER physician at length, labs/records/imaging reviewed by me. Radha Amaro MD Jun 11, 2017 02:17
[2017-06-11] MEDS: SODIUM CHLOR 0.9% 1000 ML INJ 1,000 ML IV SCH ×2 (02:54→11:00)
[2017-06-11 04:05] VITALS: BP 135/88; PULSE 95; RESP 20; TEMP 96.4; O2SAT 100
[2017-06-11 08:00] VITALS: BP 169/89; PULSE 94; RESP 18; TEMP 97.8; O2SAT 100
[2017-06-11] MEDS: DOCUSATE SODIUM 50 MG/SENNA 8.6 MG TAB PO SCH ×2 (09:00→20:37)
[2017-06-11] MEDS: SODIUM CHLORIDE 0.9% FLUSH 10 ML FLUSH IV FLUSH SCH ×2 (09:00→20:38)
--- NOTE | 2017-06-11 09:32 | RADRPT ---
EXAM DATE/TIME: 06/11/2017 09:01 [place] COMPARISON: CT ABDOMEN & PELVIS W CONTRAST, April 02, 2017, 12:49. INDICATIONS : History of ovarian cancer with double J stents, patient with left flank pain. ORAL CONTRAST: No oral contrast ingested. RADIATION DOSE: 6.64 CTDIvol (mGy) MEDICAL HISTORY : Hypertension. ovarian cancer SURGICAL HISTORY : Hysterectomy. bilateral double J stents ENCOUNTER: Initial ACUITY: 1 day PAIN SCALE: 10/10 LOCATION: Left flank TECHNIQUE: Volumetric scanning of the abdomen and pelvis was performed. Using automated exposure control and ad justment of the mA and/or kV according to patient size, radiation dose was kept as low as reasonably achievable to obtain optimal diagnostic quality images. DICOM format image data is available electro nically for review and comparison. FINDINGS: LOWER LUNGS: The visualized lower lungs are clear. LIVER: Homogeneous density without lesion. There is no dilation of the biliary tree. No calcified gallston es. SPLEEN: The spleen demonstrates interval enlargement with heterogeneous solid and cystic metastases within th e spleen. The spleen now measures 15.4 x 10.0 x 12.3 cm prior measurement of 15 cm x 11 cm x 9.5 cm. PANCREAS: Within normal limits. KIDNEYS: There are bilateral renal stents present. The left kidney is atrophic. The right kidney demonstrates prominence of the renal collecting system increased from prior exam. ADRENAL GLANDS: Within normal limits. VASCULAR: There is no aortic aneurysm. Extensive atherosclerosis. BOWEL/MESENTERY: There are multiple solid and solid and cystic mesenteric metastatic lesions. Lesion within the right upper quadrant has increased in size now measuring 1.5 cm as compared to 9 mm on the prior exam. The large solid and cystic mass involving the midline abdomen has also significantly increased in size no w measuring 7.8 x 13.2 x 10.9 cm. Within the pelvis the bilateral solid cystic masses have substantia lly increased in size with the most inferior cystic component now completely filling the pelvis and d isplacing the bladder anteriorly. There is a small amount of air identified within the residual bladd er lumen. ABDOMINAL WALL: Within normal limits. RETROPERITONEUM: There is no lymphadenopathy. BLADDER: The bladder is anteriorly displaced by the large pelvic mass with only a residual amount of fluid and air identified within the lumen. Bilateral pigtail catheters. REPRODUCTIVE: Surgically absent INGUINAL: There is no lymphadenopathy or hernia. MUSCULOSKELETAL: Within normal limits for patient age. CONCLUSION: There has been significant progression of the metastatic disease within the abdomen and pelvis. The p kendra is now completely filled with the solid and cystic masses which compress the bladder and displa ce the large and small bowel. No current evidence of bowel obstruction. Sarah Phelps MD on June 11, 2017 at 9:19 Board Certified Radiologist. This report was verified electronically.
--- NOTE | 2017-06-11 09:49 | HHI.PR ---
Subjective Remarks in no acute distress. overall feels better. no fever. Objective Vitals Vital Signs Date Time Temp Pulse Resp B/P (MAP) Pulse Ox O2 Delivery O2 Flow Rate FiO2 06/11/17 08:00 97.8 94 18 169/89 (115) 100 06/11/17 04:05 96.4 95 20 135/88 (104) 100 06/11/17 01:45 96.2 83 20 147/97 (114) 100 06/10/17 20:41 97.5 115 18 148/90 (109) 100 Room Air I/O 06/10/17 06/10/17 06/10/17 06/11/17 06/11/17 06/11/17 07:00 15:00 23:00 07:00 15:00 23:00 Intake Total 1150 ml Output Total 775 ml Balance 375 ml Intake Oral 0 ml IV Total 1150 ml Output Urine Total 775 ml # Bowel Movements 0 Result Diagram: 06/10/17223806/10/172238 Imaging Last Impressions Abdomen/Pelvis CT 06/11/17 0000 Signed Impressions: Service Date/Time: Sunday, June 11, 2017 09:01 - CONCLUSION: There has been significant progression of the metastatic disease within the abdomen and pelvis. The pelvis is now completely filled with the solid and cystic masses which compress the bladder and displace the large and small bowel. No current evidence of bowel obstruction. Sarah Phelps MD Abdomen X-Ray 06/10/17 0000 Signed Impressions: Service Date/Time: Saturday, June 10, 2017 22:46 - CONCLUSION: Bowel gas pattern within normal limits. Double-J ureteral stents in place. Sreekanth Blue MD Objective Remarks GENERAL: This is a well-nourished, well-developed patient, in no apparent distress. CARDIOVASCULAR: Regular rate and regular rhythm without murmurs, gallops, or rubs. RESPIRATORY: Clear to auscultation. Breath sounds equal bilaterally. No wheezes , rales, or rhonchi. GASTROINTESTINAL: Abdomen soft, non-tender, nondistended. Normal, active bowel sounds MUSCULOSKELETAL: Extremities without clubbing, cyanosis, or edema. NEURO: Alert & Oriented x4 to person, place, time, situation. Moves all ext x4 Medications and IVs Inpatient Medications Bisacodyl (Dulcolax Supp) 10 mg DAILY PRN RECTAL SEVERE CONSITIPATION; Start at 00:45 Ceftriaxone Sodium 1000 mg/ Sodium Chloride 100 ml @ 200 mls/hr Q24H IV ; Start 06/11/17 at 23:00 Hydromorphone HCl (Dilaudid Pf Inj) 1 mg ONCE ONCE IV PUSH Last administered on 06/10/17at 22:42; Start 06/10/17 at 22:30; Stop 06/10/17 at 22:31; Status DC Lactulose (Lactulose Liq) 30 ml DAILY PRN PO SEVERE CONSITIPATION; Start at 00:45 Levofloxacin/ Dextrose 150 ml @ 100 mls/hr ONCE ONCE IV Last administered on 06/11/17at 00:32; Start 06/11/17 at 00:15; Stop 06/11/17 at 01:44; Status DC Magnesium Hydroxide (Milk Of Magnesia Liq) 30 ml Q12H PRN PO Mild constipation ; Start 06/11/17 at 00:45 Metoclopramide HCl (Reglan Inj) 10 mg Q6H PRN IV PUSH NAUSEA OR VOMITING Last administered on 06/11/17at 08:30; Start 06/11/17 at 00:45 Morphine Sulfate (Morphine Inj) 2 mg Q3H PRN IV PUSH Pain 6-10 Last administered on 06/11/17at 01:37; Start 06/11/17 at 00:45 Oxycodone HCl (Roxicodone) 5 mg Q4H PRN PO PAIN SCALE 3 TO 5; Start 06/11/17 at 00:45 Senna/Docusate Sodium ([place]-Colace) 1 tab BID PO ; Start 06/11/17 at 09:00 Sennosides (Senokot) 17.2 mg Q12H PRN PO Moderate constipation; Start 06/11/17 at 00:45 Sodium Chloride (NS Flush) 2 ml BID IV FLUSH ; Start 06/11/17 at 09:00 A/P Problem List: (1) UTI (urinary tract infection) ICD Code: N39.0 - Urinary tract infection, site not specified (2) Intractable pain ICD Code: R52 - Pain, unspecified (3) Ovarian ca ICD Code: C56.9 - Malignant neoplasm of unspecified ovary Assessment and Plan A/P 1. UTI: U/a w/ significant UTI/Hematuria, s/p Bilateral Uteral Stent placement 05/12/[address] Merrill for bilateral hydronephrosis. S/p Levaquin in ER , will continue w/ IV Abx, IVF for hydration. Melchor in place, monitor I/O for decreased urinary output. Consult for Dr. Merrill placed. 2. Intractable Pain: secondary to above, s/p multiple doses of Morphine/ Zofran w/ minimal improvement, continue w/ analgesics/antiemetics as needed- seems to be improving. 3. Ovarian CA: follows w/ Dr. Mejia as outpatient, outpatient follow up as scheduled. Will consult as needed. 4. DVT Prophylaxis: SCD/Teds. Dee Valladares MD Jun 11, 2017 09:49
[2017-06-11 12:00] VITALS: BP 183/100; PULSE 97; RESP 16; TEMP 98.4; O2SAT 100
[2017-06-11] MEDS ORDERED: ENALAPRILAT 1.25 MG/ML VIAL IV PUSH PRN (12:00)
--- NOTE | 2017-06-11 12:28 | MB ---
cc: Lester Merrilln Leodan DO DATE: 06/11/2017 HISTORY OF PRESENT ILLNESS: Ms. Lemos is a pleasant 71-year-old female who unfortunately has metastatic ovarian cancer. Last month, she underwent cystoscopy with right double-J stent change and attempted left double-J stent exchange. She required placement of a left percutaneous nephrostomy tube with a nephroureteral stent. This was then converted to a nephroureteral stent by interventional radiology. Over the last day, she started developing difficulty with voiding and lower abdominal pain associated with nausea and vomiting. Her creatinine was 1.29 on admission. She underwent a CT scan, which demonstrated bilateral ureteral stents in good position without any evidence of hydronephrosis. Spleen was noted to be enlarged from her prior study with progression of disease in the pelvis noted. There is no evidence of any bowel obstruction identified. Mild prominence of the right collecting system was noted, however. PAST MEDICAL HISTORY: Noted for metastatic ovarian cancer and hypertension. PAST SURGICAL HISTORY: Port placement, partial hysterectomy, bilateral oophorectomy. ALLERGIES: SHE IS ALLERGIC TO TYLENOL AND ONDANSETRON. FAMILY HISTORY: Father is still living. Mother 10 years ago of natural causes. SOCIAL HISTORY: Negative for alcohol or tobacco. Positive for marijuana. REVIEW OF SYSTEMS: Notes abdominal pain, difficulty with urination. Melchor placed for 800 mL. Denies chest pain. Denies shortness of breath. Denies headaches. Does note some lower extremity weakness. Denies bleeding disorders. The remaining review of systems were reviewed and were negative. PHYSICAL EXAMINATION: VITAL SIGNS: Temperature 97.8, heart rate 94, respiratory rate 18, blood pressure 169/89. GENERAL: She is a well-developed, well-nourished, 71-year-old female in no acute distress. HEENT: Normocephalic, atraumatic. Pupils equal, round, reactive to light. Extraocular movements intact. NECK: Supple. HEART: Regular rate and rhythm. LUNGS: Clear. ABDOMEN: Soft. There is some left upper quadrant tenderness with splenic enlargement and suprapubic tenderness due to her metastatic ovarian cancer. GENITOURINARY: Melchor is in place, draining clear urine. EXTREMITIES: Lower extremities show no evidence of cyanosis, clubbing or edema. NEUROLOGIC: Cranial nerves 2-12 are intact. LABORATORY DATA: White count 8.7, hemoglobin 10.6, hematocrit 32.2, platelets 279. Sodium 134, potassium 4.0, chloride 102, CO2 is 18.3, BUN 33, creatinine 1.29, glucose 146. Urinalysis shows numerous red and white cells. Cultures pending. IMAGING STUDIES: Again show mild fullness of the right collecting system without hydronephrosis, enlargement of the spleen due to metastatic disease and enlargement of the pelvic mass also due to ovarian cancer. ASSESSMENT AND PLAN: A 71-year-old female with metastatic ovarian cancer with bilateral ureteral stents in place. Kidneys currently draining without significant hydronephrosis. Creatinine normal at 1.2. Continue with supportive measures, pain control, IV fluids. Maintain Melchor catheter for now. Would institute physical therapy once she is ambulating. Would give a void trial prior to discharge and see how she does. Urine culture pending. Continue antibiotics. Thank you for the consult and allowing me to participate in the care of this patient. DO JT Russell/SAVANNAH , 12:06 PM , 12:27 PM
[2017-06-11] MEDS: amLODIPine BESYLATE 5 MG TAB PO SCH (12:43)
[2017-06-11 15:16] VITALS: BP 146/99; PULSE 88; RESP 16; TEMP 98.5; O2SAT 97
[2017-06-11 20:00] VITALS: BP 125/94; PULSE 106; RESP 18; TEMP 98.5; O2SAT 100
[2017-06-11] MEDS: cefTRIAXone INJ 1,000 MG in SODIUM CHLORIDE 0.9% INJ 100 ML IV SCH (22:23)
[2017-06-12] VITALS (7 sets, daily range): BP systolic 104–164; BP diastolic 57–96; PULSE 65–109; RESP 16–19; TEMP 97.4–98.4; O2SAT 95–99
[2017-06-12] MEDS: SODIUM CHLOR 0.9% 1000 ML INJ 1,000 ML IV SCH ×3 (00:15→16:51)
[2017-06-12] MEDS: MORPHINE SULFATE 2 MG/ML SYRINGE IV PUSH PRN ×3 (02:01→11:22)
[2017-06-12 07:02] LABS: AUTOMATED NEUTROPHIL # 5.6 TH/MM3 (1.8-7.7); BASOPHIL # 0.1 TH/MM3 (0-0.2); BASOPHIL % 0.9 % (0.0-2.0); EOSINOPHIL # 0.1 TH/MM3 (0-0.4); EOSINOPHIL % 0.8 % (0.0-4.0); HEMATOCRIT 29.4 % (35.0-46.0); HEMOGLOBIN 9.6 GM/DL (11.6-15.3); LYMPHOCYTE # 1.2 TH/MM3 (1.0-4.8); MEAN CELL VOLUME 94.2 FL (80.0-100.0); MEAN CORPUSCULAR HEMOGLOBIN 30.6 PG (27.0-34.0); MEAN CORPUSCULAR HGB CONC 32.5 % (32.0-36.0); MEAN PLATELET VOLUME 9.3 FL (7.0-11.0); MONO % 9.2 % (0.0-8.0); MONOCYTE # 0.7 TH/MM3 (0-0.9); NEUT % 73.1 % (16.0-70.0); PLATELET COUNT 212 TH/MM3 (150-450); RED BLOOD COUNT 3.12 MIL/MM3 (4.00-5.30); RED CELL DISTRIBUTION WIDTH 17.3 % (11.6-17.2); WHITE BLOOD COUNT 7.6 TH/MM3 (4.0-11.0)
[2017-06-12 07:33] LABS: ALKALINE PHOSPHATASE 46 U/L (45-117); ALT (GPT) 17 U/L (10-53); AST (GOT) 52 U/L (15-37); BICARBONATE 18.5 MEQ/L (21.0-32.0); BLOOD UREA NITROGEN 18 MG/DL (7-18); CALCIUM 8.6 MG/DL (8.5-10.1); CHLORIDE 109 MEQ/L (98-107); CREATININE 0.97 MG/DL (0.50-1.00); GLOMERULAR FILTRATION RATE 57 ML/MIN (>89); GLUCOSE,RANDOM 95 MG/DL (74-106); SODIUM (NA) 139 MEQ/L (136-145); TOTAL BILIRUBIN ADULT 0.3 MG/DL (0.2-1.0); TOTAL PROTEIN 6.7 GM/DL (6.4-8.2)
[2017-06-12] MEDS: amLODIPine BESYLATE 5 MG TAB PO SCH (09:55)
[2017-06-12] MEDS: SODIUM CHLORIDE 0.9% FLUSH 10 ML FLUSH IV FLUSH SCH ×2 (09:56→20:44)
[2017-06-12] MEDS: DOCUSATE SODIUM 50 MG/SENNA 8.6 MG TAB PO SCH ×2 (09:57→20:45)
--- NOTE | 2017-06-12 15:01 | HHI.PR ---
Subjective Remarks Patient c/i mild RLQ abdominal pain, denies flank pain Denies fevers or chills stable vital signs Objective Vitals Vital Signs Date Time Temp Pulse Resp B/P (MAP) Pulse Ox O2 Delivery O2 Flow Rate FiO2 06/12/17 12:00 98.4 86 17 131/75 (93) 98 06/12/17 08:00 97.4 89 19 157/96 (116) 98 06/12/17 04:50 98.4 93 18 141/94 (110) 99 06/12/17 00:12 98.3 109 18 140/83 (102) 99 06/11/17 20:00 98.5 106 18 125/94 (104) 100 06/11/17 15:16 98.5 88 16 146/99 (115) 97 I/O 06/11/17 06/11/17 06/11/17 06/12/17 06/12/17 06/12/17 07:00 15:00 23:00 07:00 15:00 23:00 Intake Total 1150 ml 240 ml Output Total 775 ml 1750 ml 400 ml Balance 375 ml -1510 ml -400 ml Intake Oral 0 ml 240 ml IV Total 1150 ml Output Urine Total 775 ml 1750 ml 400 ml # Bowel Movements 0 Result Diagram: 06/12/17 0620 06/12/17 0620 Imaging Last Impressions Abdomen/Pelvis CT 06/11/17 0000 Signed Impressions: Service Date/Time: Sunday, June 11, 2017 09:01 - CONCLUSION: There has been significant progression of the metastatic disease within the abdomen and pelvis. The pelvis is now completely filled with the solid and cystic masses which compress the bladder and displace the large and small bowel. No current evidence of bowel obstruction. Sarah Phelps MD Abdomen X-Ray 06/10/17 0000 Signed Impressions: Service Date/Time: Saturday, June 10, 2017 22:46 - CONCLUSION: Bowel gas pattern within normal limits. Double-J ureteral stents in place. Sreekanth Blue MD Objective Remarks GENERAL: This is a well-nourished, well-developed patient, in no apparent distress. CARDIOVASCULAR: Regular rate and regular rhythm without murmurs, gallops, or rubs. RESPIRATORY: Clear to auscultation. Breath sounds equal bilaterally. No wheezes , rales, or rhonchi. GASTROINTESTINAL: Abdomen soft, nondistended, moderately tender to palpation diffusely of the abdomen most notable on the right lower quadrant and on the left upper quadrant. Normal, active bowel sounds MUSCULOSKELETAL: Extremities without clubbing, cyanosis, or edema. NEURO: Alert & Oriented x4 to person, place, time, situation. Moves all ext x4 Medications and IVs Current Medications Medications (Trade) Dose Ordered Sig/Ignacio Route Start Time Stop Time Status Last Admin Ceftriaxone Sodium 1000 mg/ Sodium Chloride 100 ml @ 200 mls/hr Q24H IV 06/11/17 23:00 06/11/17 22:23 Sodium Chloride 1,000 ml @ 100 mls/hr Q10H IV 06/11/17 01:00 06/12/17 09:56 (NS Flush) 2 ml UNSCH PRN IV FLUSH 06/11/17 00:45 (NS Flush) 2 ml BID IV FLUSH 06/11/17 09:00 06/12/17 09:56 (Reglan Inj) 10 mg Q6H PRN IV PUSH 06/11/17 00:45 06/11/17 16:55 (Morphine Inj) 2 mg Q3H PRN IV PUSH 06/11/17 00:45 06/12/17 11:22 (Roxicodone) 5 mg Q4H PRN PO 06/11/17 00:45 ([place]-Colace) 1 tab BID PO 06/11/17 09:00 06/11/17 20:37 (Milk Of Magnesia Liq) 30 ml Q12H PRN PO 06/11/17 00:45 (Senokot) 17.2 mg Q12H PRN PO 06/11/17 00:45 (Dulcolax Supp) 10 mg DAILY PRN RECTAL 06/11/17 00:45 (Lactulose Liq) 30 ml DAILY PRN PO 06/11/17 00:45 (Norvasc) 5 mg DAILY PO 06/11/17 12:00 06/12/17 09:55 (Vasotec Inj) 1.25 mg Q8H PRN IV PUSH 06/11/17 12:00 A/P Problem List: (1) UTI (urinary tract infection) ICD Code: N39.0 - Urinary tract infection, site not specified (2) Intractable pain ICD Code: R52 - Pain, unspecified (3) Ovarian ca ICD Code: C56.9 - Malignant neoplasm of unspecified ovary Assessment and Plan 1. UTI: U/a w/ significant UTI/Hematuria, s/p Bilateral Uteral Stent placement 05/12/[address] Merrill for bilateral hydronephrosis. S/p Levaquin in ER , will continue w/ IV Abx, IVF for hydration. Melchor in place, monitor I/O for decreased urinary output. Consult for Dr. Merrill placed. 06/12 appreciate urology consultation. Urine culture with mixed gram-positive karmen with probable contaminants. Patient is afebrile and has no leukocytosis. Discontinue IV antibiotics. 2. Intractable Pain: secondary to above, s/p multiple doses of Morphine/ Zofran w/ minimal improvement, continue w/ analgesics/antiemetics as needed- seems to be improving. 06/12 pain better controlled today. Continue IV morphine and oxycodone. 3. Ovarian CA: follows w/ Dr. Mejia as outpatient, outpatient follow up as scheduled. Will consult as needed. 4. DVT Prophylaxis: SCD/Teds. 5. TRAMAINE. Likely due to dehydration. Resolved after IV fluid administration. Remove Melchor catheter and start voiding trials. Will also obtain bladder scan after each void. 6. Constipation. Patient states she has not had a bowel movement in 2 days. Will Rx MiraLAX. Discharge Planning Discharge pending successful voiding trials and resolution of constipation. Nehemias Cortes MD Jun 12, 2017 15:01
[2017-06-12] MEDS ORDERED: PERI PO (15:05)
[2017-06-12] MEDS ORDERED: MIRA3350 PO (15:05)
--- NOTE | 2017-06-12 15:05 | HHI.DCPOC ---
Discharge Care Plan Diagnosis: (1) Metastatic cancer (2) Hypertension (3) Ovarian cancer (4) Hydronephrosis due to obstruction of ureter (5) UTI (urinary tract infection) (6) Ovarian ca (7) Intractable pain Goals to Promote Your Health * To prevent worsening of your condition and complications * To maintain your health at the optimal level Directions to Meet Your Goals Take your medications as prescribed Follow your dietary instruction Follow activity as directed Keep your appointments as scheduled Take your immunizations and boosters as scheduled If your symptoms worsen call your PCP, if no PCP go to Urgent Care Center or Emergency Room Smoking is Dangerous to Your Health. Avoid second hand smoke Call the 24-hour hour crisis hotline for domestic abuse at Nehemias Cortes MD Jun 12, 2017 15:05
[2017-06-12] MEDS ORDERED: OXYC1CAP PO (15:07)
--- NOTE | 2017-06-12 15:18 | HHI.DS ---
Discharge Summary Admission Date Jun 11, 2017 at 00:48 Discharge Date: Jun 12, 2017 Admitting Diagnosis uti urinary retention and recent ureter stents (1) UTI (urinary tract infection) ICD Code: N39.0 - Urinary tract infection, site not specified (2) Intractable pain ICD Code: R52 - Pain, unspecified (3) Ovarian ca ICD Code: C56.9 - Malignant neoplasm of unspecified ovary (4) Constipation ICD Code: K59.00 - Constipation, unspecified (5) Metastatic cancer ICD Code: C79.9 - Secondary malignant neoplasm of unspecified site Status: Acute Procedures none Brief History - From Admission This is a 71-year-old female with a PMH of Metastatic Ovarian CA, HTN who presented to the ER w/ complaints of urinary retention and flank pain. S/p Cystoscopy w/ Right Stent and Removal of Left Stent w/ Attempted Ureteral Stent Placement by Dr. Merrill on 05/12/17 for bilateral hydronephrosis. Today w/ worsening left-sided flank pain and minimal urinary output since this morning. Notes some abdominal distention, pain is severe, 10/10, non-radiating. On arrival, BP 148/90, HR 115, O2 sat 100% RA, Afebrile. CBC essentially unremarkable. Creatinine 1.29, previously 1.08 on 06/06/17. Lactic Acid 2.3. UA with significant UTI and hematuria. Abdominal X-ray bowel gas pattern within normal limits, double-J ureteral stents in place. S/p Melchor in ER w/ approx 800ml urine output. S/p Levaquin IV. Follows w/ Dr. Mejia as outpatient for h/o Ovarian CA. CBC/BMP: 06/12/17 0620 06/12/17 0620 Significant Findings Laboratory Tests Test 06/10/17 22:39 06/10/17 23:38 06/12/17 06:20 Red Blood Count 3.50 MIL/MM3 (4.00-5.30) 3.12 MIL/MM3 (4.00-5.30) Hemoglobin 10.6 GM/DL (11.6-15.3) 9.6 GM/DL (11.6-15.3) Hematocrit 32.2 % (35.0-46.0) 29.4 % (35.0-46.0) Neutrophils (%) (Auto) 85.9 % (16.0-70.0) 73.1 % (16.0-70.0) Lymphocytes # (Auto) 0.8 TH/MM3 (1.0-4.8) Blood Urea Nitrogen 33 MG/DL (7-18) Creatinine 1.29 MG/DL (0.50-1.00) Random Glucose 146 MG/DL (74-106) Aspartate Amino Transf (AST/SGOT) 48 U/L (15-37) 52 U/L (15-37) Sodium Level 134 MEQ/L (136-145) Carbon Dioxide Level 18.3 MEQ/L (21.0-32.0) 18.5 MEQ/L (21.0-32.0) Estimat Glomerular Filtration Rate 41 ML/MIN (>89) 57 ML/MIN (>89) Lactic Acid Level 2.3 mmol/L (0.4-2.0) Troponin I LESS THAN 0.02 NG/ML Urine Turbidity HAZY (CLEAR) Urine Protein 300 mg/dL (NEG-TRACE) Urine Occult Blood MOD (NEG) Urine Nitrite POS (NEG) Urine Leukocyte Esterase LARGE (NEG) Urine Bacteria FEW /hpf (NONE) Urine Mucus FEW /lpf (OCC) Red Cell Distribution Width 17.3 % (11.6-17.2) Monocytes (%) (Auto) 9.2 % (0.0-8.0) Albumin 3.0 GM/DL (3.4-5.0) Chloride Level 109 MEQ/L (98-107) Imaging Last Impressions Abdomen/Pelvis CT 06/11/17 Signed Impressions: Service Date/Time: Sunday, June 11, 2017 09:01 - CONCLUSION: There has been significant progression of the metastatic disease within the abdomen and pelvis. The pelvis is now completely filled with the solid and cystic masses which compress the bladder and displace the large and small bowel. No current evidence of bowel obstruction. Sarah Phelps MD Abdomen X-Ray 06/10/17 Signed Impressions: Service Date/Time: Saturday, June 10, 2017 22:46 - CONCLUSION: Bowel gas pattern within normal limits. Double-J ureteral stents in place. Sreekanth Blue MD PE at Discharge GENERAL: This is a well-nourished, well-developed patient, in no apparent distress. CARDIOVASCULAR: Regular rate and regular rhythm without murmurs, gallops, or rubs. RESPIRATORY: Clear to auscultation. Breath sounds equal bilaterally. No wheezes , rales, or rhonchi. GASTROINTESTINAL: Abdomen soft, nondistended, moderately tender to palpation diffusely of the abdomen most notable on the right lower quadrant and on the left upper quadrant. Normal, active bowel sounds MUSCULOSKELETAL: Extremities without clubbing, cyanosis, or edema. NEURO: Alert & Oriented x4 to person, place, time, situation. Moves all ext x4 Pt Condition on Discharge: Stable Discharge Disposition: Discharge Home Discharge Instructions DIET: Follow Instructions for: As Tolerated, No Restrictions Activities you can perform: Regular-No Restrictions Follow up Referrals: Oncology - 1 Week with Noni Mejia MD PCP Follow-up - 1 Week Urology - 2 Weeks with Anastacio Merrill DO New Medications: Oxycodone (Oxycodone) 5 Mg Cap 5 MG PO Q4H PRN for PAIN, #30 CAP 0 Refills Polyethylene Glycol 3350 Powder (Miralax Powder) 17 Gm Powd 17 GM PO DAILY PRN for CONSTIPATION, #1 CAN 0 Refills Mix and dissolve one measuring cap-ful (17 grams) in water or juice. Sennosides-Docusate Sodium (Gnp Senna Plus 8.6-50 mg) 8.6 Mg-50 Mg Tab 1 TAB PO BID for prevent constipation, #60 TAB Continued Medications: Lactobacillus Rhamnosus (GG) (Digestive Advantage Probiotic) 1 Chew 2 TAB CHEW DAILY for Nutritional Supplement, TAB 0 Refills Lisinopril (Lisinopril) 40 Mg Tab 40 MG PO DAILY for Blood Pressure Management, #30 TAB 0 Refills [colby red] () 1 TAB PO DAILY Nehemias Cortes MD Jun 12, 2017 15:18
[2017-06-12] MEDS ORDERED: BISACODYL 10 MG SUPP RECTAL ONE (16:00)
[2017-06-12] MEDS ORDERED: POLYETHYLENE GLYCOL 17 GM PKG PO ONE (16:00)
[2017-06-12] MEDS ORDERED: SODIUM CHLORIDE 0.9% FLUSH 10 ML FLUSH IVF PRN (18:30)
[2017-06-12] MEDS: cefTRIAXone INJ 1,000 MG in SODIUM CHLORIDE 0.9% INJ 100 ML IV SCH (23:30)
[2017-06-13] MEDS ORDERED: SOD PHOSPHATE/SOD BIPHOSPHATE (ADULT) ENEMA 133ML RECTAL ONE
[2017-06-13] MEDS: MORPHINE SULFATE 2 MG/ML SYRINGE IV PUSH PRN ×7 (00:11→23:04)
[2017-06-13] MEDS: SODIUM CHLOR 0.9% 1000 ML INJ 1,000 ML IV SCH ×3 (03:11→19:31)
[2017-06-13 03:50] VITALS: BP 117/67; PULSE 83; RESP 18; TEMP 98.2; O2SAT 98
[2017-06-13 07:29] VITALS: BP 124/83; PULSE 87; RESP 16; TEMP 98; O2SAT 98
[2017-06-13] MEDS: SODIUM CHLORIDE 0.9% FLUSH 10 ML FLUSH IV FLUSH SCH ×2 (08:41→19:31)
[2017-06-13] MEDS: amLODIPine BESYLATE 5 MG TAB PO SCH (08:41)
[2017-06-13] MEDS: DOCUSATE SODIUM 50 MG/SENNA 8.6 MG TAB PO SCH ×2 (08:41→19:48)
[2017-06-13 12:27] VITALS: BP 163/90; PULSE 106; RESP 16; TEMP 97.8; O2SAT 98
--- NOTE | 2017-06-13 14:34 | HHI.PR ---
Subjective Remarks Deferred entry, the patient was seen at 10:30 AM. Pain controlled. Denies cp/sob As per RN unable to void yet Had a BM Objective Vitals Vital Signs Date Time Temp Pulse Resp B/P (MAP) Pulse Ox O2 Delivery O2 Flow Rate FiO2 06/13/17 12:27 97.8 106 16 163/90 (114) 98 06/13/17 07:29 98.0 87 16 124/83 (97) 98 06/13/17 03:50 98.2 83 18 117/67 (84) 98 06/12/17 23:35 98.0 80 18 164/88 (113) 99 06/12/17 16:00 99 I/O 06/12/17 06/12/17 06/12/17 06/13/17 06/13/17 06/13/17 07:00 15:00 23:00 07:00 15:00 23:00 Intake Total 920 ml Output Total 400 ml 550 ml 800 ml Balance -400 ml 370 ml -800 ml Intake Oral 920 ml Output Urine Total 400 ml 550 ml 800 ml # Bowel Movements 1 Result Diagram: 06/12/17 0620 06/12/17 0620 Imaging Last Impressions Abdomen/Pelvis CT 06/11/17 0000 Signed Impressions: Service Date/Time: Sunday, June 11, 2017 09:01 - CONCLUSION: There has been significant progression of the metastatic disease within the abdomen and pelvis. The pelvis is now completely filled with the solid and cystic masses which compress the bladder and displace the large and small bowel. No current evidence of bowel obstruction. Sarah Phelps MD Abdomen X-Ray 06/10/17 0000 Signed Impressions: Service Date/Time: Saturday, June 10, 2017 22:46 - CONCLUSION: Bowel gas pattern within normal limits. Double-J ureteral stents in place. Sreekanth Blue MD Objective Remarks GENERAL: This is a well-nourished, well-developed patient, in no apparent distress. CARDIOVASCULAR: Regular rate and regular rhythm without murmurs, gallops, or rubs. RESPIRATORY: Clear to auscultation. Breath sounds equal bilaterally. No wheezes , rales, or rhonchi. GASTROINTESTINAL: Abdomen soft, nondistended, moderately tender to palpation diffusely of the abdomen most notable on the right lower quadrant and on the left upper quadrant. Normal, active bowel sounds MUSCULOSKELETAL: Extremities without clubbing, cyanosis, or edema. NEURO: Alert & Oriented x4 to person, place, time, situation. Moves all ext x4 Procedures none Medications and IVs Current Medications Medications (Trade) Dose Ordered Sig/Ignacio Route Start Time Stop Time Status Last Admin Ceftriaxone Sodium 1000 mg/ Sodium Chloride 100 ml @ 200 mls/hr Q24H IV 06/11/17 23:00 06/12/17 23:30 Sodium Chloride 1,000 ml @ 100 mls/hr Q10H IV 06/11/17 01:00 06/13/17 03:11 (NS Flush) 2 ml UNSCH PRN IV FLUSH 06/11/17 00:45 (NS Flush) 2 ml BID IV FLUSH 06/11/17 09:00 06/12/17 20:44 (Reglan Inj) 10 mg Q6H PRN IV PUSH 06/11/17 00:45 06/11/17 16:55 (Morphine Inj) 2 mg Q3H PRN IV PUSH 06/11/17 00:45 06/13/17 12:55 (Roxicodone) 5 mg Q4H PRN PO 06/11/17 00:45 ([place]-Colace) 1 tab BID PO 06/11/17 09:00 06/13/17 08:41 (Milk Of Magnesia Liq) 30 ml Q12H PRN PO 06/11/17 00:45 (Senokot) 17.2 mg Q12H PRN PO 06/11/17 00:45 (Dulcolax Supp) 10 mg DAILY PRN RECTAL 06/11/17 00:45 (Lactulose Liq) 30 ml DAILY PRN PO 06/11/17 00:45 06/12/17 20:44 (Norvasc) 5 mg DAILY PO 06/11/17 12:00 06/13/17 08:41 (Vasotec Inj) 1.25 mg Q8H PRN IV PUSH 06/11/17 12:00 (Heparin Central Flush) 500 units UNSCH IV FLUSH 06/12/17 18:30 (NS Flush) 5 ml UNSCH PRN IVF 06/12/17 18:30 (Heparin Central Flush) 250 units UNSCH PRN IV FLUSH 06/12/17 18:30 A/P Problem List: (1) UTI (urinary tract infection) ICD Code: N39.0 - Urinary tract infection, site not specified (2) Intractable pain ICD Code: R52 - Pain, unspecified (3) Ovarian ca ICD Code: C56.9 - Malignant neoplasm of unspecified ovary (4) Constipation ICD Code: K59.00 - Constipation, unspecified (5) Metastatic cancer ICD Code: C79.9 - Secondary malignant neoplasm of unspecified site Status: Acute Assessment and Plan 1. UTI: U/a w/ significant UTI/Hematuria, s/p Bilateral Uteral Stent placement 05/12/[address] Merrill for bilateral hydronephrosis. S/p Levaquin in ER , will continue w/ IV Abx, IVF for hydration. Melchor in place, monitor I/O for decreased urinary output. Consult for Dr. Merrill placed. 06/12 appreciate urology consultation. Urine culture with mixed gram-positive karmen with probable contaminants. Patient is afebrile and has no leukocytosis. Discontinue IV antibiotics. 2. Intractable Pain: secondary to above, s/p multiple doses of Morphine/ Zofran w/ minimal improvement, continue w/ analgesics/antiemetics as needed- seems to be improving. 06/12 pain better controlled today. Continue IV morphine and oxycodone. 3. Ovarian CA: follows w/ Dr. Mejia as outpatient, outpatient follow up as scheduled. Will consult as needed. 06/13 consult palliative care. 4. DVT Prophylaxis: SCD/Teds. 5. TRAMAINE. Likely due to dehydration. Resolved after IV fluid administration. Remove Melchor catheter and start voiding trials. Will also obtain bladder scan after each void. 6. Constipation. Patient states she has not had a bowel movement in 2 days. Will Rx MiraLAX. 06/13 resolved. Continue stool softeners. 7. Urinary retention: 06/13 Patient unable to void. Suspect the patient has ureteral compression due to mass-effect due to metastatic ovarian cancer. Order bladder scan if there are more than 200 mL's in the urinary bladder then Melchor catheter will be inserted. The patient likely will be discharged with a Melchor catheter and a bag to follow-up with urology. Discharge Planning Pending palliative care consultation. Problem Qualifiers (1) Ovarian ca: Qualified Codes: C56.9 - Malignant neoplasm of unspecified ovary (2) Constipation: Qualified Codes: K59.09 - Other constipation Nehemias Cortes MD Jun 13, 2017 14:34
--- NOTE | 2017-06-13 14:54 | PD.CONS ---
Consult Service Palliative Care Consult Requested By Dr. Rojas Primary Care Physician Jeane Weaver D.O. Reason for Consultation a. To assist with evaluation and management of symptoms including: Pain, nausea, constipation b. To assist medical decision maker(s) with: better understanding of current medical conditions; weighing benefits/burdens of medical treatment options; making medical treatment decisions. HPI History of Present Illness This is a very pleasant 71-year-old female with a history of ovarian cancer, diagnosed in 2011, currently stage IIIc for which she has been undergoing chemotherapy with Dr. Mejia. Chemotherapy has been ineffective in controlling the progression of the cancer which has now metastasized widely. She was seen in the hospital in March for urinary retention/hydronephrosis and had urinary stents placed which resolved initially but then progressed back to being unable to void. She was again seen in the emergency room in April for abdominal pain. On this admission 06/10, she presented with suprapubic pain and painful spasms across her entire lower abdomen. She has been previously treated with topotecan at 15% dose reduction. Due to an increase in CA 125 she was changed to single agent Taxol, dose reduced on 04/07. She was able to tolerate week 1 and week to, however was not able to have chemotherapy done week 3 due to an increase in her creatinine of greater than 5. This has since resolved and she resumed chemotherapy receiving again the first 2 doses, the last of which was 06/07. She developed urinary retention and presented to the emergency room with the above-mentioned severe abdominal pain. Urology was consulted and recommended removing the Melchor and monitoring for return of spontaneous urination. That has not occurred and at this evaluation, bladder scan showed greater than 1 L of urine in her bladder. Melchor catheter is being inserted. She was about to be discharged home yesterday when the urinary retention was noted. Clinical data * Laboratory: Presenting labs in the ED show WBC 8.7, hemoglobin 10.6, hematocrit 32.2, platelets 279, sodium 134, potassium 4.0, BUN 33, creatinine 1.29, AST 48, ALT 19, troponin less than 0.02, urinalysis showing moderate occult blood, positive nitrite, large leukocyte esterase, sent for culture showing probable contaminants. Follow-up laboratory values remained overall stable. * Radiology: KUB shows normal bowel gas pattern with double-J ureteral stents in place. CT of the abdomen and pelvis without contrast shows significant progression of the metastatic disease within the abdomen and pelvis with the pelvis now completely filled with the solid and cystic masses which compressed the bladder and displace the large and small bowel. No current evidence of bowel obstruction. Overall this is a well-nourished, well-developed elderly female lying in bed in mild distress with frequent abdominal spasms causing her pain. She describes her pain as a twisting, burning sensation worsening with bladder spasms. The pain is constant with intermittent exacerbations during spasms. She states that the most relief she received has been from Dilaudid, which takes effect within 10 minutes and gives her 1-2 hours of pain relief during which time she is able to sleep. Otherwise the pain keeps her awake. She states that the morphine takes 20-30 minutes to take effect and lasts another 20-30 minutes. Oxycodone causes her severe nausea and vomiting, as does acetaminophen and ondansetron. She is the primary caregiver for her 98-year-old father, however is assisted by her cousin, who lives with her. She has a good support system with her best friend, from childhood, whom she refers to as her "sister". She believes that she does not wish to resume chemotherapy as it is not resolving the cancer, which continues to grow and metastasize and requested a consultation with hospice. . Function/Cognitive Trajectory She has previously been fairly healthy with only hypertension and ovarian cancer in her medical history. Since March she has been seen in the emergency room 3 times. She is now becoming weaker and less able to manage her daily affairs due to the nausea, fatigue and pain caused by her illness. . Review of Systems Constitutional: COMPLAINS OF: Fatigue, Weight loss, Change in appetite, Pain, Sleep problems Endocrine: DENIES: Abnorml menstrual pattern, Heat/cold intolerance, Polydipsia , Polyuria, Polyphagia Eyes: DENIES: Blurred vision, Diplopia, Eye inflammation, Eye pain, Vision loss , Photosensitivity, Double Vision, Blind spots Ears, nose, mouth, throat: DENIES: Tinnitus, Hearing loss, Vertigo, Nasal discharge, Oral lesions, Throat pain, Hoarseness, Ear Pain, Running Nose, Epistaxis, Sinus Pain, Toothache, Odynophagia Respiratory: DENIES: Apneas, Cough, Snoring, Wheezing, Hemoptysis, Sputum production, Shortness of breath Cardiovascular: DENIES: Chest pain, Palpitations, Syncope, Dyspnea on Exertion , PND, Lower Extremity Edema, Orthopnea, Claudication Gastrointestinal: COMPLAINS OF: Abdominal pain, Constipation, Nausea Genitourinary: COMPLAINS OF: Dysuria (Urinary retention, unable to void.) Musculoskeletal: COMPLAINS OF: Back pain Integumentary: DENIES: Abnormal pigmentation, Pruritus, Rash, Nail changes, Breast masses, Breast skin changes, Nipple discharge, Nodules, Tumors, Excessive dryness, Non-healing sores Hematologic/Lymphatics: COMPLAINS OF: History of transfusions, DENIES: Bruising , Lymphadenopathy, Prolonged bleed w/ proced Immunologic/Allergic: DENIES: Eczema, Urticaria Neurologic: DENIES: Abnormal gait, Headache, Localized weakness, Paresthesias, Seizures, Speech Problems, Tremor, Poor Balance, Change in smell or taste Psychiatric: DENIES: Anxiety, Confusion, Mood changes, Depression, Hallucinations, Agitation, Suicidal Ideation, Homicidal Ideation, Delusions, Anhedonia Past Family Social History Coded Allergies: acetaminophen (Verified Allergy, Severe, VOMITING, 06/10/17) ondansetron (Verified Allergy, Unknown, 06/10/17) Past Medical History Hypertension Metastatic ovarian cancer . Past Surgical History DIDIER/BSO Right chest port placement Cystoscopy, right retrograde pyelogram, right double-J stent insertion, removal of left double-J stent, left ureteroscopy with attempted ureteral stent placement 05/12/2017 Exploratory laparotomy, lysis of adhesion, BSO, omentectomy, segmental small bowel resection with [id number] anastomosis, cytoreduction and intraperitoneal carcinomatosis, left ureteral lysis 06/23/2011 Laparoscopy, drainage of ascites, multifocal intraperitoneal biopsies 06/03/2011 Paracentesis with 7.7 L of fluid removed 06/17/11 Paracentesis with removal of 6900 cc fluid 05/21/2011 Percutaneous nephroureteral stent placement 05/12/2017 Percutaneous nephroureteral stent placement 04/02/2017 Paracentesis 4400 cc fluid 04/26/2011 Antegrade pyelogram with nephrostomy tube removal 05/25/2017 Left ureteral stent placement through existing nephrostomy tract with exchange of nephrostomy catheter 05/20/2017 . Reported Medications Reported Meds & Active Scripts Active Oxycodone (Oxycodone HCl) 5 Mg Cap 5 Mg PO Q4H PRN Lisinopril 40 Mg Tab 40 Mg PO DAILY Reported [colby red] 1 Tab PO DAILY Digestive Advantage Probiotic (Lactobacillus Rhamnosus (GG)) 1 Chew 2 Tab CHEW DAILY . Current Medications Medications (Trade) Dose Ordered Sig/Ignacio Route Start Time Stop Time Status Last Admin Ceftriaxone Sodium 1000 mg/ Sodium Chloride 100 ml @ 200 mls/hr Q24H IV 06/11/17 23:00 06/12/17 23:30 Sodium Chloride 1,000 ml @ 100 mls/hr Q10H IV 06/11/17 01:00 06/13/17 03:11 (NS Flush) 2 ml UNSCH PRN IV FLUSH 06/11/17 00:45 (NS Flush) 2 ml BID IV FLUSH 06/11/17 09:00 06/12/17 20:44 (Reglan Inj) 10 mg Q6H PRN IV PUSH 06/11/17 00:45 06/11/17 16:55 (Morphine Inj) 2 mg Q3H PRN IV PUSH 06/11/17 00:45 06/13/17 12:55 (Roxicodone) 5 mg Q4H PRN PO 06/11/17 00:45 (Keara-Colace) 1 tab BID PO 06/11/17 09:00 06/13/17 08:41 (Milk Of Magnesia Liq) 30 ml Q12H PRN PO 06/11/17 00:45 (Senokot) 17.2 mg Q12H PRN PO 06/11/17 00:45 (Dulcolax Supp) 10 mg DAILY PRN RECTAL 06/11/17 00:45 (Lactulose Liq) 30 ml DAILY PRN PO 06/11/17 00:45 06/12/17 20:44 (Norvasc) 5 mg DAILY PO 06/11/17 12:00 06/13/17 08:41 (Vasotec Inj) 1.25 mg Q8H PRN IV PUSH 06/11/17 12:00 (Heparin Central Flush) 500 units UNSCH IV FLUSH 06/12/17 18:30 (NS Flush) 5 ml UNSCH PRN IVF 06/12/17 18:30 (Heparin Central Flush) 250 units UNSCH PRN IV FLUSH 06/12/17 18:30 . Family History Mother at age 88 of natural causes, father is still alive at age 98 in fairly good health. She has lost both a sister and brother to cancer. . Substance Use Tobacco: Never a smoker. Alcohol: Rare use. Prescription med abuse: No history. Illicits: Has used marijuana for cancer symptom control for the past 6 months, no prior history. . 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 She was , however did not have children. Her passed a little over a year ago with cancer. She and her had moved to [place] in 1977. . Spiritual/Cultural Factors She is a devout Christianity. . Living Will: Never completed Health Care Surrogate: Copy in medical record Durable Power of Stripper [employer] Opaquer Apprentice: Never completed Date completed: 06/13/2017 Health Care Surrogate(s): She has named her friend, Alexandrea Sanchez as her primary healthcare surrogate and her cousin, Yousuf Fuentes, as her alternate. Documented care wishes: No living will available. . Today's verbally stated goals: She has decided to stop chemotherapy in the interest of controlling her symptoms , wishes to enroll in hospice. . Family/friends goals: Her cousin and her best friend are at bedside and agree with her determination of goals. . Ethical and Legal Issues None noted. . Physical Exam Vital Signs Date Time Temp Pulse Resp B/P (MAP) Pulse Ox O2 Delivery O2 Flow Rate FiO2 06/13/17 12:27 97.8 106 16 163/90 (114) 98 06/13/17 07:29 98.0 87 16 124/83 (97) 98 06/13/17 03:50 98.2 83 18 117/67 (84) 98 06/12/17 23:35 98.0 80 18 164/88 (113) 99 06/12/17 16:00 99 . Exam CONSTITUTIONAL/GENERAL: This is an adequately nourished patient, in no apparent distress. TUBES/LINES/DRAINS: Right chest port, Melchor catheter SKIN: No jaundice, rashes, or lesions. Ecchymoses on upper extremities. No wounds seen anteriorly. Skin temperature appropriate. Not diaphoretic. HEAD: Atraumatic. Normocephalic. EYES: Pupils equal and round and reactive. Extraocular motions intact. No scleral icterus. No injection or drainage. Fundi not examined. ENT: Hearing grossly normal. Nose without bleeding or purulent drainage. Throat without visible erythema, exudates, masses, or lesions. NECK: Trachea midline. Supple, nontender. No palpable thyroid enlargement or nodularity. CARDIOVASCULAR: Regular rate and rhythm without murmurs, gallops, or rubs. No JVD. Peripheral pulses symmetric. RESPIRATORY/CHEST: Symmetric, unlabored respirations. Clear to auscultation. Breath sounds equal bilaterally. No wheezes, rales, or rhonchi. GASTROINTESTINAL: Abdomen distended, tender with or without touch, hypoactive bowel sounds. GENITOURINARY: Without palpable bladder distension. Melchor catheter in place. MUSCULOSKELETAL: Extremities without clubbing, cyanosis, or edema. No joint tenderness or effusion noted. No calf tenderness. No mottling or clubbing. LYMPHATICS: No palpable cervical or supraclavicular adenopathy. NEUROLOGICAL: Awake and alert. Motor and sensory grossly within normal limits. Follows commands. Cognitively sharp. Moves all extremities. PSYCHIATRIC: Mild anxiety, exacerbates with pain. . Diagnostic Tests Laboratory Laboratory Tests Test 06/10/17 22:39 06/10/17 23:38 06/12/17 06:20 White Blood Count 8.7 TH/MM3 (4.0-11.0) 7.6 TH/MM3 (4.0-11.0) Red Blood Count 3.50 MIL/MM3 (4.00-5.30) 3.12 MIL/MM3 (4.00-5.30) Hemoglobin 10.6 GM/DL (11.6-15.3) 9.6 GM/DL (11.6-15.3) Hematocrit 32.2 % (35.0-46.0) 29.4 % (35.0-46.0) Mean Corpuscular Volume 92.0 FL (80.0-100.0) 94.2 FL (80.0-100.0) Mean Corpuscular Hemoglobin 30.2 PG (27.0-34.0) 30.6 PG (27.0-34.0) Mean Corpuscular Hemoglobin Concent 32.9 % (32.0-36.0) 32.5 % (32.0-36.0) Red Cell Distribution Width 16.6 % (11.6-17.2) 17.3 % (11.6-17.2) Platelet Count 279 TH/MM3 (150-450) 212 TH/MM3 (150-450) Mean Platelet Volume 9.4 FL (7.0-11.0) 9.3 FL (7.0-11.0) Neutrophils (%) (Auto) 85.9 % (16.0-70.0) 73.1 % (16.0-70.0) Lymphocytes (%) (Auto) 9.0 % (9.0-44.0) 16.0 % (9.0-44.0) Monocytes (%) (Auto) 4.3 % (0.0-8.0) 9.2 % (0.0-8.0) Eosinophils (%) (Auto) 0.3 % (0.0-4.0) 0.8 % (0.0-4.0) Basophils (%) (Auto) 0.5 % (0.0-2.0) 0.9 % (0.0-2.0) Neutrophils # (Auto) 7.5 TH/MM3 (1.8-7.7) 5.6 TH/MM3 (1.8-7.7) Lymphocytes # (Auto) 0.8 TH/MM3 (1.0-4.8) 1.2 TH/MM3 (1.0-4.8) Monocytes # (Auto) 0.4 TH/MM3 (0-0.9) 0.7 TH/MM3 (0-0.9) Eosinophils # (Auto) 0.0 TH/MM3 (0-0.4) 0.1 TH/MM3 (0-0.4) Basophils # (Auto) 0.0 TH/MM3 (0-0.2) 0.1 TH/MM3 (0-0.2) CBC Comment DIFF FINAL DIFF FINAL Differential Comment Blood Urea Nitrogen 33 MG/DL (7-18) 18 MG/DL (7-18) Creatinine 1.29 MG/DL (0.50-1.00) 0.97 MG/DL (0.50-1.00) Random Glucose 146 MG/DL (74-106) 95 MG/DL (74-106) Total Protein 7.3 GM/DL (6.4-8.2) 6.7 GM/DL (6.4-8.2) Albumin 3.6 GM/DL (3.4-5.0) 3.0 GM/DL (3.4-5.0) Calcium Level 9.1 MG/DL (8.5-10.1) 8.6 MG/DL (8.5-10.1) Alkaline Phosphatase 54 U/L (45-117) 46 U/L (45-117) Aspartate Amino Transf (AST/SGOT) 48 U/L (15-37) 52 U/L (15-37) Alanine Aminotransferase (ALT/SGPT) 19 U/L (10-53) 17 U/L (10-53) Total Bilirubin 0.6 MG/DL (0.2-1.0) 0.3 MG/DL (0.2-1.0) Sodium Level 134 MEQ/L (136-145) 139 MEQ/L (136-145) Potassium Level 4.0 MEQ/L (3.5-5.1) 4.1 MEQ/L (3.5-5.1) Chloride Level 102 MEQ/L (98-107) 109 MEQ/L (98-107) Carbon Dioxide Level 18.3 MEQ/L (21.0-32.0) 18.5 MEQ/L (21.0-32.0) Anion Gap 14 MEQ/L (5-15) 12 MEQ/L (5-15) Estimat Glomerular Filtration Rate 41 ML/MIN (>89) 57 ML/MIN (>89) Lactic Acid Level 2.3 mmol/L (0.4-2.0) Troponin I LESS THAN 0.02 NG/ML Urine Color YELLOW (YELLW/STRAW) Urine Turbidity HAZY (CLEAR) Urine pH 6.5 (5.0-8.5) Urine Specific [place] 1.016 (1.002-1.035) Urine Protein 300 mg/dL (NEG-TRACE) Urine Glucose (UA) NEG mg/dL (NEG) Urine Ketones NEG mg/dL (NEG) Urine Occult Blood MOD (NEG) Urine Nitrite POS (NEG) Urine Bilirubin NEG (NEG) Urine Urobilinogen LESS THAN 2.0 MG/DL (LESS Urine Leukocyte Esterase LARGE (NEG) Urine RBC /hpf (0-3) Urine WBC /hpf (0-5) Urine Squamous Epithelial Cells <1 /hpf (0-5) Urine Amorphous Sediment RARE Urine Bacteria FEW /hpf (NONE) Urine Mucus FEW /lpf (OCC) Microscopic Urinalysis Comment CULTURE INDICATED . Result Diagram: 06/12/1761906/12/17619 Microbiology Microbiology Date/Time Source Procedure Growth Status 06/10/17 23:38 Urine Clean Catch Urine Culture - Final 50-100,000 CFU/ML MIXED GRAM POSITIVE... Complete Imaging Last Impressions Abdomen/Pelvis CT 06/11/17 0000 Signed Impressions: Service Date/Time: Sunday, June 11, 2017 09:01 - CONCLUSION: There has been significant progression of the metastatic disease within the abdomen and pelvis. The pelvis is now completely filled with the solid and cystic masses which compress the bladder and displace the large and small bowel. No current evidence of bowel obstruction. Sarah Phelps MD Abdomen X-Ray 06/10/17 0000 Signed Impressions: Service Date/Time: Saturday, June 10, 2017 22:46 - CONCLUSION: Bowel gas pattern within normal limits. Double-J ureteral stents in place. Sreekanth Blue MD Patient/Family Conference Present at Family Conference: Spoke with patient, friend Alexandrea Sanchez and cousin Yousuf at bedside, reviewed the following details as well as patient's past medical, surgical, social and psychosocial history. Discussed goals of care during which patient indicated that she would like hospice. Consultation placed, discussed with hospice admissions office and admissions nurse Raquel Reed. . Family Conference Time (mins): 40 Family Conference Location: Bedside Issues Discussed: * Palliative care role, purpose, approach * Additional medical, psychosocial, and spiritual history * Patients general health, functional status, and cognitive changes in the months leading up to the current hospitalization * Patient/family understanding of the current medical problems * Patient/family understanding of prognosis * Patients goals of care as best understood from advance directives and/or conversations and/or values * Current medical treatment options and benefits/burdens of those options * Likely scenarios comparing ongoing aggressive care with a transition to comfort measures only * Questions answered to the best of my ability * Palliative care contact information provided Assessment and Plan Disease Oriented Problem List: (1) Ovarian cancer (2) Constipation (3) Hypertension Symptom Scale: (1) Intractable pain (2) Constipation (3) Nausea Pertinent Non-Medical Issues Psychosocial:She was born in [place] and 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 She was , however did not have children. Her passed a little over a year ago with cancer. She and her had moved to [place] in 1977. Spiritual: She has a devout Christianity. Legal: Healthcare surrogate completed, no living will or power of city attorney. Ethical issues impacting care: None noted. . Important Contacts Friend - Alexandrea Sanchez Cousin - Yousuf Fuentes . Prognosis Her prognosis is poor. She has metastatic stage IIIc ovarian cancer with minimal response to chemotherapy. She is not tolerating chemotherapy well and as it is giving her no benefit she has decided to stop undergoing chemotherapy and has chosen to enroll in hospice. Given the progressive nature of her disease it is likely that it will prove terminal within the next 6 months. Code Status: No Code Plan PLAN: Legal decision maker: At this time the patient is capacitated to make her own decisions and has named healthcare surrogates as her friend Alexandrea and cousin Yousuf. Goals: Comfort oriented. CODE STATUS: DNR SYMPTOMS: * Pain: She has received 10 mg of morphine thus far today her pain remains uncontrolled at 8-9/10. Oxycodone is ordered for her, however causes her severe nausea and vomiting so she is using none. She does state that Dilaudid had been best effect on pain control. This information was transmitted to the hospice admitting nurse. * Nausea: This is intermittent, worsened by pain. She is allergic to ondansetron which causes intractable vomiting. Reglan has been initiated with her last dose being taken 06/11. * Constipation: She has received lactulose, Keara-Colace, MiraLAX, Dulcolax suppository and a fleets enema with return of a small amount of stool. She stated the MiraLAX worked well with apple juice. Have recommended she continue that regimen at home once discharged. SUMMARY This is a 71-year-old female with metastatic ovarian cancer nonresponsive to chemotherapy. At this time she has requested a hospice consultation to be able to stay home and continue to assist with her father's care. Her family and friends are supporting her in this. She has requested a quarrying manager to visit for [facility]. She appears to be appropriate for hospice given her terminal diagnosis. Palliative care will continue to follow the patient during hospital course as condition evolves, to assist patient/decision-maker with understanding of their medical conditions, weighing benefits/burdens of treatment options, for clarification of goals of treatment. Additionally will assist with any symptoms of palliative concern. . Time Spent Time Periods: 11: 15-11: 55 Total Floor Time (mins): 75 Face to Face Time (mins): 40 >50% Counseling/Coord of Care: Yes Thank you for the opportunity to participate in the care of Ms. Lemos. Attestation To help prompt me to consider important information that might be impacting today's encounter and assessment, information from prior notes written by myself or my colleagues may have been "brought forward" into today's note. My signature on this note, however, is an attestation that I personally performed the exam, history, and/or decision-making noted today, and, unless otherwise indicated, the interactions with patient, family, and staff as well as the review of records all occurred today. I also attest that the listed assessment and stated plan reflect my best clinical judgment today based on the combination of historical information, prior notes, and today's exam/ interactions. When time spent is documented, it refers only to time spent today by the signer, or if indicated, combined time spent today by collaborating physician/nurse practitioner. . Racheal Chou Jun 13, 2017 2:53 pm
[2017-06-13 16:45] VITALS: BP 157/80; PULSE 85; RESP 16; TEMP 98.6; O2SAT 98
[2017-06-13] MEDS: cefTRIAXone INJ 1,000 MG in SODIUM CHLORIDE 0.9% INJ 100 ML IV SCH (21:36)
[2017-06-13 22:08] VITALS: BP 141/91; PULSE 89; RESP 18; TEMP 98.8; O2SAT 99
[2017-06-14 01:05] VITALS: BP 149/95; PULSE 92; RESP 18; TEMP 98.5; O2SAT 98
[2017-06-14 04:45] VITALS: BP 151/97; PULSE 92; RESP 18; TEMP 98.4; O2SAT 100
[2017-06-14] MEDS: MORPHINE SULFATE 2 MG/ML SYRINGE IV PUSH PRN ×3 (04:58→11:50)
[2017-06-14] MEDS: SODIUM CHLOR 0.9% 1000 ML INJ 1,000 ML IV SCH (05:05)
[2017-06-14 07:46] VITALS: BP 170/90; PULSE 89; RESP 18; TEMP 97.9; O2SAT 99
--- NOTE | 2017-06-14 08:43 | PD.PN.STU ---
Subjective Remarks Patient feeling better today with pain medication and drainage of urinary retention with truong. She will be discharged to hospice later today for pain management. Not urinating on her own still. Truong in place after failure of urinary trial. No BM since yesterday. Denies fever, chest pain, or shortness of breath. Objective Vitals Vital Signs Date Time Temp Pulse Resp B/P (MAP) Pulse Ox O2 Delivery O2 Flow Rate FiO2 06/14/17 07:46 97.9 89 18 170/90 (116) 99 06/14/17 04:45 98.4 92 18 151/97 (115) 100 06/14/17 01:05 98.5 92 18 149/95 (113) 98 06/13/17 22:08 98.8 89 18 141/91 (108) 99 06/13/17 16:45 98.6 85 16 157/80 (105) 98 06/13/17 12:27 97.8 106 16 163/90 (114) 98 I/O 06/13/17 06/13/17 06/13/17 06/14/17 06/14/17 06/14/17 07:00 15:00 23:00 07:00 15:00 23:00 Intake Total 1250 ml Output Total 800 ml 650 ml Balance -800 ml 600 ml Intake Oral 250 ml IV Total 1000 ml Output Urine Total 800 ml 650 ml Bladder Scan Volume Amount 818 ml Result Diagram: 06/12/17 0620 06/12/17 0620 Other Results Laboratory Tests Test 06/12/17 06:20 Red Blood Count 3.12 MIL/MM3 (4.00-5.30) Hemoglobin 9.6 GM/DL (11.6-15.3) Hematocrit 29.4 % (35.0-46.0) Red Cell Distribution Width 17.3 % (11.6-17.2) Neutrophils (%) (Auto) 73.1 % (16.0-70.0) Monocytes (%) (Auto) 9.2 % (0.0-8.0) Albumin 3.0 GM/DL (3.4-5.0) Aspartate Amino Transf (AST/SGOT) 52 U/L (15-37) Chloride Level 109 MEQ/L (98-107) Carbon Dioxide Level 18.5 MEQ/L (21.0-32.0) Estimat Glomerular Filtration Rate 57 ML/MIN (>89) Imaging Last Impressions Abdomen/Pelvis CT 06/11/17 0000 Signed Impressions: Service Date/Time: Sunday, June 11, 2017 09:01 - CONCLUSION: There has been significant progression of the metastatic disease within the abdomen and pelvis. The pelvis is now completely filled with the solid and cystic masses which compress the bladder and displace the large and small bowel. No current evidence of bowel obstruction. Sarah Phelps MD Abdomen X-Ray 06/10/17 0000 Signed Impressions: Service Date/Time: Saturday, June 10, 2017 22:46 - CONCLUSION: Bowel gas pattern within normal limits. Double-J ureteral stents in place. Sreekanth Blue MD Objective Remarks GENERAL: This is a well-nourished, well-developed patient, in no apparent distress. CARDIOVASCULAR: Regular rate and regular rhythm without murmurs, gallops, or rubs. RESPIRATORY: Clear to auscultation. Breath sounds equal bilaterally. No wheezes , rales, or rhonchi. GASTROINTESTINAL: Abdomen soft, nondistended, moderately tender to palpation diffusely of the abdomen most notable on the right lower quadrant and on the left upper quadrant. Normal, active bowel sounds MUSCULOSKELETAL: Extremities without clubbing, cyanosis, or edema. NEURO: Alert & Oriented x4 to person, place, time, situation. Moves all ext x4 Medications and IVs Current Medications Medications (Trade) Dose Ordered Sig/Ignacio Route Start Time Stop Time Status Last Admin Ceftriaxone Sodium 1000 mg/ Sodium Chloride 100 ml @ 200 mls/hr Q24H IV 06/11/17 23:00 06/13/17 21:36 Sodium Chloride 1,000 ml @ 100 mls/hr Q10H IV 06/11/17 01:00 06/14/17 05:05 (NS Flush) 2 ml UNSCH PRN IV FLUSH 06/11/17 00:45 (NS Flush) 2 ml BID IV FLUSH 06/11/17 09:00 06/12/17 20:44 (Reglan Inj) 10 mg Q6H PRN IV PUSH 06/11/17 00:45 06/11/17 16:55 (Morphine Inj) 2 mg Q3H PRN IV PUSH 06/11/17 00:45 06/14/17 04:58 (Roxicodone) 5 mg Q4H PRN PO 06/11/17 00:45 ([place]-Colace) 1 tab BID PO 06/11/17 09:00 06/13/17 08:41 (Milk Of Magnesia Liq) 30 ml Q12H PRN PO 06/11/17 00:45 (Senokot) 17.2 mg Q12H PRN PO 06/11/17 00:45 (Dulcolax Supp) 10 mg DAILY PRN RECTAL 06/11/17 00:45 (Lactulose Liq) 30 ml DAILY PRN PO 06/11/17 00:45 06/12/17 20:44 (Norvasc) 5 mg DAILY PO 06/11/17 12:00 06/13/17 08:41 (Vasotec Inj) 1.25 mg Q8H PRN IV PUSH 06/11/17 12:00 (Heparin Central Flush) 500 units UNSCH IV FLUSH 06/12/17 18:30 (NS Flush) 5 ml UNSCH PRN IVF 06/12/17 18:30 (Heparin Central Flush) 250 units UNSCH PRN IV FLUSH 06/12/17 18:30 A/P Assessment and Plan Assessment and Plan 1. UTI: U/a w/ significant UTI/Hematuria, s/p Bilateral Uteral Stent placement 05/12/[address] Merrill for bilateral hydronephrosis. S/p Levaquin in ER , will continue w/ IV Abx, IVF for hydration. Truong in place, monitor I/O for decreased urinary output. Consult for Dr. Merrill placed. 06/12 appreciate urology consultation. Urine culture with mixed gram-positive karmen with probable contaminants. Patient is afebrile and has no leukocytosis. Discontinue IV antibiotics. 06/13 patient continues to be afebrile and normal wbc. 2. Intractable Pain: secondary to above, s/p multiple doses of Morphine/ Zofran w/ minimal improvement, continue w/ analgesics/antiemetics as needed- seems to be improving. 06/12 pain better controlled today. Continue IV morphine and oxycodone. 06/13 pain continues to be well controlled on IV morphine and oxycodone. Will be discharged to Hospice for further pain management. 3. Ovarian CA: follows w/ Dr. Mejia as outpatient, outpatient follow up as scheduled. Will consult as needed. 06/13 consult palliative care. 06/14 Appreciate palliative care consultation. They will continue to follow her at hospice for further goals of care management. 4. DVT Prophylaxis: SCD/Teds. 5. TRAMAINE. Likely due to dehydration. Resolved after IV fluid administration. Remove Truong catheter and start voiding trials. Will also obtain bladder scan after each void. 6. Constipation. Patient states she has not had a bowel movement in 2 days. Will Rx MiraLAX. 06/13 resolved. Continue stool softeners. 06/14 no bowel movement since 06/13. Will continue on bowel softeners. 7. Urinary retention: 06/13 Patient unable to void. Suspect the patient has ureteral compression due to mass-effect due to metastatic ovarian cancer. Order bladder scan if there are more than 200 mL's in the urinary bladder then Truong catheter will be inserted. The patient likely will be discharged with a Truong catheter and a bag to follow-up with urology. 06/14 trial of voiding unsuccessful, continual Truong placement with significant urinary retention - over 800 mL on bladder scan this AM. She will be discharged to hospice with Truong. Discharge Planning Discharge to Hospice today. Lauren Cabezas M3 Jun 14, 2017 08:42
[2017-06-14] MEDS: DOCUSATE SODIUM 50 MG/SENNA 8.6 MG TAB PO SCH (09:00)
[2017-06-14] MEDS: amLODIPine BESYLATE 5 MG TAB PO SCH (09:00)
[2017-06-14] MEDS: SODIUM CHLORIDE 0.9% FLUSH 10 ML FLUSH IV FLUSH SCH (09:01)
[2017-06-14] MEDS ORDERED: AMLO5 PO (09:10)
[2017-06-14 11:30] VITALS: BP 143/83; PULSE 86; RESP 18; TEMP 98; O2SAT 99
== END 2017-06-14 12:51 | disposition hospice, inpatient (51) ==
LOC: NEPC 20:37 → NEDA 06-11 00:48 → NEDH 06-11 05:03 → NEPGCP 06-11 14:47
PROVIDERS: ADMIT Hospitalist; ATTEND Hospitalist
DX: N39.0 Urinary tract infection, site not specified (principal); R31.9 Hematuria, unspecified; N13.30 Unspecified hydronephrosis; R52 Pain, unspecified; C56.9 Malignant neoplasm of unspecified ovary; C79.89 Secondary malignant neoplasm of other specified sites; I10 Essential (primary) hypertension; N17.9 Acute kidney failure, unspecified; K59.09 Other constipation; F12.90 Cannabis use, unspecified, uncomplicated; Z79.899 Other long term (current) drug therapy
CPT/HCPCS: 51702; 74019; 74176; 80053; 81001; 83605; 84484; 85025; 87086; 96361; 96365; 96366; 96367; 96375; 96376; 99285; G0378; J0696; J1170; J1956; J2270; J2765; J7030